=== PATIENT | female | born 1945 | race Caucasian/White ===

== ENCOUNTER 2017-09-10 13:50 | Inpatient (IN) | payer MEDICARE ==
[2017-09-10] MEDS ORDERED: Nitroglycerin 0.4 MG TAB (25 Tab Bottle) ONE (14:17)
[2017-09-10] MEDS ORDERED: Nitroglycerin 2% Ointment 1 INCH/1 GM Packet ONE (14:18)
[2017-09-10 14:41] LABS: #Basophils 0.1 thou/uL (0.0-0.2); #Eosinphils 0.1 thou/uL (0.0-0.7); #Lymphocytes 1.4 thou/uL (1.20-3.40); #Monocytes 0.7 thou/uL (0.11-0.59); #Neutrophils 6.4 thou/uL (1.40-6.50); %Basophils 1.2 % (0.0-1.0); %Eosinophils 0.8 % (0.0-10.0); %Lymphocytes 15.9 % (21.0-51.0); %Monocytes 8.5 % (0.0-10.0); %Neutrophils 73.6 % (42.0-75.0); Anisocytosis SLIGHT = 6-15 cells (100X) (0-5/hpf); Elliptocytes SLIGHT = 2-5 cells (100X) (0-1/hpf); Hemoglobin 9.9 g/dL (12.0-16.0); Hypochromia SLIGHT = 6-15 cells (100X) (0-5/hpf); MDiff Complete? YES; Mean Corpuscular HGB CONC 31.4 g/dL (32.0-36.0); Mean Corpuscular Hemoglobin 24.6 pg (27.0-31.0); Mean Corpuscular Volume 78.6 fl (81.0-99.0); Microcytosis SLIGHT = 6-15 cells (100X) (0-5/hpf); PLT Morphology Comment Appears Adequate; Platelet Count 331 thou/uL (130-400); RBC Distribution Width 16.9 % (11.5-14.5); Red Blood Cell (RBC) Count 4.01 mill/uL (4.20-5.40); Schistocytes SLIGHT = 2-5 cells (100X) (0-1/hpf); Target Cells SLIGHT = 2-5 cells (100X) (0-1/hpf); White Blood Cell (WBC) Count 8.7 thou/uL (4.8-10.8)
[2017-09-10 14:47] LABS: ALT (SGPT) 10 U/L (8-55); AST (SGOT) 20 U/L (5-34); Albumin 3.9 g/dL (3.4-4.8); Alkaline Phosphatase 81 U/L (40-150); Anion Gap 15 mmol/L (10-20); BUN (Urea Nitrogen) 14 mg/dL (9.8-20.1); Bilirubin, Total 0.4 mg/dL (0.2-1.2); CK (CPK) 67 U/L (29-168); Calc. Creatinine Clearance 0 mL/min (70-130); Calcium 9.9 mg/dL (7.8-10.44); Carbon Dioxide 23 mmol/L (23-31); Chloride 106 mmol/L (98-107); Estimated GFR-MDRD 69; Globulin 3.2 g/dL (2.4-3.5); Glucose 110 mg/dL (83-110); Potassium 3.5 mmol/L (3.5-5.1); Protein, Total 7.1 g/dL (6.0-8.3); Sodium 140 mmol/L (136-145)
[2017-09-10 14:49] LABS: CKMB 1.6 ng/mL (0-6.6); Troponin I 0.123 ng/mL (< 0.028)
--- NOTE | 2017-09-10 15:45 | RAD ---
CHEST ONE VIEW: HISTORY: Chest pain. COMPARISON: 12/08/2013 FINDINGS: The cardiac silhouette is magnified and at the upper limits of normal in size. The pulmonary vascula ture is unremarkable. The mediastinum is midline. No lobar consolidation or evidence of pneumothora x. Metallic clips overly each axilla. IMPRESSION: Borderline cardiomegaly. POS: [facility]
[2017-09-10] MEDS ORDERED: Acetaminophen 325 MG TAB PO PRN ×2 (17:27→21:24)
[2017-09-10] MEDS ORDERED: Ondansetron ODT 4 MG TAB SL PRN ×2 (17:27→21:24)
[2017-09-10] MEDS ORDERED: Ondansetron HCl/PF 4 MG/2 ML Vial IVP PRN ×2 (17:27→21:23)
[2017-09-10] MEDS ORDERED: Nitroglycerin 2% Ointment 1 INCH/1 GM Packet TOP SCH (17:30)
[2017-09-10 17:57] VITALS: BMI 27.5
[2017-09-10 18:29] LABS: Troponin I 8.424 ng/mL (< 0.028)
[2017-09-10] MEDS ORDERED: cloNIDine 0.1 MG TAB PO PRN (19:49)
[2017-09-10] MEDS: Carvedilol 3.125 MG TAB PO SCH (20:13)
[2017-09-10] MEDS: Lisinopril 5 MG TAB PO SCH (20:13)
[2017-09-10] MEDS: Pantoprazole 40 MG VIAL IVP SCH (20:14)
[2017-09-10 20:49] LABS: Troponin I 12.911 ng/mL (< 0.028)
--- NOTE | 2017-09-11 00:33 | HP ---
DATE OF ADMISSION: 09/11/2017 HISTORY OF PRESENT ILLNESS: This is a 72-year-old white female with a history of atrial fibrillation in 2015 treated with cardioversion followed by cardiac ablation x2. Patient has done relatively well since then. On 08/14/2017, she had seen Dr. Simon and was found to have a hemoglobin of 8.1. She has also had edema of her lower extremities. At that time her Xarelto, Lasix, and lisinopril were stopped. She was referred to Dr. Grace. She underwent an EGD and colonoscopy, which revealed a negative EGD and colon polyps. A large colon mass was also found and biopsy was obtained, which was benign. She is scheduled to see Dr. Burrows this week for possible excision. This morning, she was in her backyard, shooting her pellet gun, which requires pumping for priming. This is a very strenuous task. She was attempting to shoot squirrels in her backyard at [place]. While doing that she felt bilateral arm pain as well as tightness across her chest. She was quite excited that time and then immediately afterwards she felt a tight band around her chest with pain radiating down her left upper extremity. She states that this lasted approximately 2 hours and resolved while in the emergency room after receiving nitroglycerin and aspirin. At this time, she is chest pain free, conversing with her sister having a good time. She does not complain of any chest pain or shortness of breath at this time. PAST MEDICAL HISTORY: History of headaches, history of breast cancer, history of atrial fibrillation. PAST SURGICAL HISTORY: Include breast lumpectomy age 57 and 58, gastric sleeve at age 63, tubal ligation age 28, cataract surgery in 2016, cardiac ablation x2 , EGD and colonoscopy in early August of this year. FAMILY HISTORY: Father at 89 with lung issues, heart disease. Mother at 89. Maternal grandmother had hypertension and a CVA. She has one healthy sister and two healthy sons. SOCIAL HISTORY: She is a former smoker. She quit in 1983. She has a 1 pack per day history for many years. She drinks one glass of wine daily. She is . She has 2 sons. She is retired. She has been retired. MEDICATIONS: At this time none. She was previously on Xarelto 20 mg daily, lisinopril 5 mg daily, Estrace daily, Lasix 40 mg p.r.n., and Macrobid p.r.n. ALLERGIES: None. REVIEW OF SYSTEMS: As above. PHYSICAL EXAMINATION: VITAL SIGNS: Temperature 98.4, pulse 78, respiration rate 18, blood pressure 161/97. GENERAL: In no acute distress at this time. HEENT: Clear. HEART: Regular rate and rhythm with 3/6 systolic ejection murmur. LUNGS: Clear. ABDOMEN: Soft. EXTREMITIES: With no edema. LABORATORY DATA: White count 8.7, H&H 9.9 and 31.5, platelet of 331. Electrolytes normal. Creatinine 0.81, BUN 14, blood sugar 110. Troponin 0.123 and 8.424. BNP 223. ASSESSMENT: 1. Chest pain, rule out myocardial infarction. 2. Chest wall pain secondary to strenuous activity this afternoon. 3. History of atrial fibrillation, status post cardiac ablation. 4. Hypertension. 5. History of breast cancer. 6. History of tobacco use. PLAN: 1. Patient does have an elevated troponin level unsure if this is cardiac or not. A repeat is scheduled at 8:00 p.m. isauro. 2. Continue nitroglycerin. 3. Start Coreg 3.125 b.i.d. 4. Hold Lovenox for now. 5. Consult Dr. Eric who plans to see her in the a.m. MTDD
[2017-09-11] MEDS: Nitroglycerin 2% Ointment 1 INCH/1 GM Packet TOP SCH ×3 (03:58→20:10)
[2017-09-11 04:18] LABS: #Eosinphils 0.1 thou/uL (0.0-0.7); #Lymphocytes 1.3 thou/uL (1.20-3.40); #Monocytes 0.7 thou/uL (0.11-0.59); #Neutrophils 4.1 thou/uL (1.40-6.50); %Basophils 0.2 % (0.0-1.0); %Eosinophils 1.6 % (0.0-10.0); %Lymphocytes 21.5 % (21.0-51.0); %Monocytes 10.6 % (0.0-10.0); %Neutrophils 66.1 % (42.0-75.0); Hemoglobin 8.3 g/dL (12.0-16.0); Mean Corpuscular HGB CONC 31.5 g/dL (32.0-36.0); Mean Corpuscular Hemoglobin 25.5 pg (27.0-31.0); Mean Corpuscular Volume 80.9 fl (81.0-99.0); Mean Platelet Volume 6.6 fL (7.4-10.4); Platelet Count 283 thou/uL (130-400); RBC Distribution Width 16.9 % (11.5-14.5); Red Blood Cell (RBC) Count 3.27 mill/uL (4.20-5.40); White Blood Cell (WBC) Count 6.3 thou/uL (4.8-10.8)
[2017-09-11 04:43] LABS: Anion Gap 7 mmol/L (10-20); BUN (Urea Nitrogen) 12 mg/dL (9.8-20.1); Calc. Creatinine Clearance 94 mL/min (70-130); Calcium 9.2 mg/dL (7.8-10.44); Carbon Dioxide 29 mmol/L (23-31); Chloride 108 mmol/L (98-107); Estimated GFR-MDRD 82; Glucose 101 mg/dL (83-110); Potassium 3.6 mmol/L (3.5-5.1); Sodium 140 mmol/L (136-145)
[2017-09-11 05:59] LABS: Critical Call Chem Troponin I RESULT DECREASING; Troponin I 8.687 ng/mL (< 0.028)
[2017-09-11] MEDS ORDERED: Lisinopril 5 MG TAB PO SCH (09:00)
[2017-09-11] MEDS ORDERED: Aspirin 81 mg Enteric Coated Tablet PO SCH (09:30)
[2017-09-11] MEDS ORDERED: Aspirin 325 mg Enteric Coated Tablet PO SCH (09:30)
[2017-09-11] MEDS: Ferrous Sulfate 325 MG TAB PO SCH (10:12)
[2017-09-11] MEDS: Pantoprazole 40 MG VIAL IVP SCH ×2 (10:13→20:10)
[2017-09-11] MEDS: Carvedilol 3.125 MG TAB PO SCH ×2 (10:13→20:10)
--- NOTE | 2017-09-11 12:03 | CON ---
DATE OF CONSULTATION: 09/11/2017 HISTORY OF PRESENT ILLNESS: Mojgan Barger is a 72-year-old white female who has been followed by Dr. Simon for atrial arrhythmias in the past. She was initially seen in 08/2011 for palpitations, but no specific etiology was found. In 07/2014, she was found to be in atrial fibrillation and was started on Xarelto and rate controlled. She underwent Lexiscan Cardiolite testing, which revealed anterior ischemia. This was then followed by cardiac catheterization at [facility] in 08/2014 which revealed normal coronary arteries. The decision was made to place her on flecainide and then she underwent electrical cardioversion on 09/2014, but recurred after that. She underwent atrial fibrillation ablation in 10/2014 in [place]. She had recurrence of her atrial arrhythmias with atrial flutter in 12/2014. She was placed on Multaq and cardioverted. Again in 01/2015, she was in atrial fibrillation and underwent electrical cardioversion. Ultimately, she had repeat radiofrequency ablation in 06/2015, and returned to sinus rhythm. She has essentially been in sinus rhythm since that time, although she still has brief paroxysms of atrial fibrillation, sometimes with aberrancy. She has continued to be maintained on Xarelto for stroke prophylaxis. She denies any significant previous chest pain. Yesterday, she was shooting her pellet guns at some squirrels and after that developed central chest pressure which then seemed to radiate down both arms and created band-like effect around her chest. She went to [facility] Emergency Room and was given 4 chewable aspirins and nitroglycerin 0.4 mg sublingually. Her pain completely resolved. Total duration of her pain was 3 hours. She has had elevated troponin I and Cardiology consultation was requested. She did have one 10-minute episode of chest pressure last night, but none since. She was seen in the office on 08/11/2017 and was found to have recent hemoglobin of 8.8. She was also hypotensive at home. Xarelto was stopped. She was placed on iron and referred to GI. Apparently, her hemoglobin fell to 8.1. Lisinopril and Lasix also were stopped. EGD was unremarkable and colonoscopy revealed polyps and large colonic mass which was found to be benign ; however, it was felt that it should be removed with its large size and potential for obstruction in the future. PAST MEDICAL HISTORY: Atrial fibrillation, status post 2 ablations and 3 cardioversions, history of breast cancer, history of headaches. OPERATIONS: Breast lumpectomy x2, gastric sleeve at age 63, tubal ligation, cataract surgery, radiofrequency ablation of atrial fibrillation x2. MEDICATIONS: Ferrous sulfate 325 mg daily. In the recent past she was on Xarelto, furosemide and lisinopril. ALLERGIES: None. SOCIAL HISTORY: She stopped smoking in 1983, smoking 1 pack per day prior to that. She has a glass of wine daily. FAMILY HISTORY: Father had some type of heart disease. REVIEW OF SYSTEMS: Twelve-point review of systems unremarkable except as noted above. PHYSICAL EXAMINATION: VITAL SIGNS: Blood pressure 126/75, pulse is 76, sinus rhythm. She does have intermittent episodes of supraventricular tachycardia as well as idioventricular rhythm on EKG and SVT with aberrancy probably at other times. HEENT: PERRL. NECK: Supple. CHEST: Clear. CARDIAC: S1 and S2 normal without any S3, S4 or murmurs. Carotid upstrokes normal, without bruits. ABDOMEN: Normal bowel sounds, without tenderness, organomegaly or masses. EXTREMITIES: Reveal no clubbing, cyanosis or edema. NEUROLOGIC: Grossly intact. SKIN: Warm and dry. IMAGING DATA AND LABORATORY DATA: EKG is normal except for a short run of probable idioventricular rhythm. Hemoglobin 8.3, hematocrit 26.5, white count 6 ,300, platelets 283,000. Sodium 140, potassium 3.6, chloride 108, carbon dioxide 29, BUN 12, creatinine 0.70. BNP 223.8, troponin I peaked at 12.911. IMPRESSION: 1. [id number] elevation myocardial infarction. She did have normal coronary arteries on catheterization in 08/2014. 2. Anemia, presumably from large colonic polyp. Xarelto has been discontinued. 3. Atrial fibrillation, status post radiofrequency ablation x2 and electrical cardioversion x3, continues to maintain sinus rhythm. 4. Hypertension. 5. Former smoker. 6. Positive family history. 7. History of breast cancer and lumpectomy x2. 8. Colonic mass. 9. Anemia. PLAN: Patient will be maintained on aspirin daily as well as topical nitrates. Echocardiogram will be performed to reassess left ventricular function. The patient will be typed and cross matched since she certainly may require transfusion during this admission and with the need for catheterization may require transfusion after that. It was recommended that she undergo cardiac catheterization after the holiday weekend. Risks of this were discussed including , myocardial infarction, dye reaction, vascular injury, CVA, transfusion, limb loss, renal loss, etc. Risk of intervention with stent placement were discussed including , myocardial infarction, emergent CABG, restenosis, stent thrombosis, vessel perforation, etc. With her need for long- term anticoagulation and need for partial colectomy for removal of the colonic mass in the near future, I would only recommend placing a bare metal stent. Fasting lipids will be obtained. JOVNAID
[2017-09-11] MEDS: Lisinopril 5 MG TAB PO SCH (20:10)
[2017-09-12] MEDS: Nitroglycerin 2% Ointment 1 INCH/1 GM Packet TOP SCH (04:06)
[2017-09-12 05:33] LABS: #Eosinphils 0.1 thou/uL (0.0-0.7); #Lymphocytes 1.3 thou/uL (1.20-3.40); #Monocytes 0.7 thou/uL (0.11-0.59); #Neutrophils 3.6 thou/uL (1.40-6.50); %Basophils 0.4 % (0.0-1.0); %Lymphocytes 22.6 % (21.0-51.0); %Monocytes 12.7 % (0.0-10.0); %Neutrophils 62.2 % (42.0-75.0); Hemoglobin 8.4 g/dL (12.0-16.0); Mean Corpuscular HGB CONC 31.3 g/dL (32.0-36.0); Mean Corpuscular Hemoglobin 25.7 pg (27.0-31.0); Mean Corpuscular Volume 82.3 fl (81.0-99.0); Platelet Count 304 thou/uL (130-400); RBC Distribution Width 17.5 % (11.5-14.5); Red Blood Cell (RBC) Count 3.25 mill/uL (4.20-5.40); White Blood Cell (WBC) Count 5.8 thou/uL (4.8-10.8)
[2017-09-12 06:11] LABS: Cardiac Risk 2.4 (Less than 4.5)
[2017-09-12] MEDS: Carvedilol 3.125 MG TAB PO SCH ×2 (09:08→19:45)
[2017-09-12] MEDS: Ferrous Sulfate 325 MG TAB PO SCH (09:08)
[2017-09-12] MEDS: Aspirin 325 mg Enteric Coated Tablet PO SCH (09:08)
[2017-09-12] MEDS: Pantoprazole 40 MG VIAL IVP SCH ×2 (09:08→19:45)
--- NOTE | 2017-09-12 11:13 | PRG ---
DATE OF SERVICE: 09/11/2017 TIME: 10 a.m. SUBJECTIVE: The patient is doing well. She is chest pain free. She remains in a cheerful state wit h her sister present. Eating breakfast this morning without difficulty. She saw Dr. Hernesto hess. Plans to possibly do a cardiac catheterization on Wednesday. OBJECTIVE: VITAL SIGNS: Temperature 98.6, pulse 76, respirations 16, pulse ox 93%, blood pressure 126/75. HEART: Regular rate and rhythm with 3/6 systolic ejection murmur. LUNGS: Clear. ABDOMEN: Soft. EXTREMITIES: No edema. LABORATORY DATA: Hemoglobin and hematocrit 8.3 and 26.5, platelet 283. Electrolytes normal. Creati nine 0.7 and BUN 12. Troponin I 8.4, 12.9 and 8.6 this a.m. ASSESSMENT: 1. Chest pain, rule out myocardial infarction, rule out coronary artery disease, rule out non-ST orlin vated myocardial infarction. 2. Chest wall pain secondary to strenuous activity. 3. History of atrial fibrillation, status post cardiac ablation. 4. Hypertension. 5. History of breast cancer. 6. History of tobacco use. PLAN: 1. Discussed with Dr. Eric. Plan to possibly proceed with cardiac catheterization on Wednesday. 2. Continue iron therapy. 3. Recheck CBC and BMP in the a.m. Maintain present blood pressure regimen.
[2017-09-12] MEDS ORDERED: Communication Order-Pharmacy FS SCH (16:15)
[2017-09-12] MEDS: Atorvastatin Calcium 10 MG TAB PO SCH (19:45)
[2017-09-12] MEDS: Lisinopril 5 MG TAB PO SCH (19:45)
[2017-09-13] MEDS: Nitroglycerin 0.4 MG TAB (25 Tab Bottle) SL PRN ×2 (01:17→01:25)
[2017-09-13 05:25] LABS: #Eosinphils 0.1 thou/uL (0.0-0.7); #Lymphocytes 1.3 thou/uL (1.20-3.40); #Monocytes 0.7 thou/uL (0.11-0.59); #Neutrophils 3.2 thou/uL (1.40-6.50); %Basophils 0.6 % (0.0-1.0); %Eosinophils 2.1 % (0.0-10.0); %Lymphocytes 24.3 % (21.0-51.0); %Monocytes 13.3 % (0.0-10.0); %Neutrophils 59.6 % (42.0-75.0); Hemoglobin 8.4 g/dL (12.0-16.0); Mean Corpuscular Hemoglobin 25.6 pg (27.0-31.0); Mean Corpuscular Volume 82.5 fl (81.0-99.0); Mean Platelet Volume 7.3 fL (7.4-10.4); Platelet Count 303 thou/uL (130-400); RBC Distribution Width 17.4 % (11.5-14.5); Red Blood Cell (RBC) Count 3.27 mill/uL (4.20-5.40); White Blood Cell (WBC) Count 5.4 thou/uL (4.8-10.8)
[2017-09-13] MEDS: Pantoprazole 40 MG VIAL IVP SCH ×2 (09:39→20:03)
[2017-09-13] MEDS: Aspirin 325 mg Enteric Coated Tablet PO SCH (09:39)
[2017-09-13] MEDS: Ferrous Sulfate 325 MG TAB PO SCH (09:39)
[2017-09-13] MEDS: Carvedilol 3.125 MG TAB PO SCH ×2 (09:39→20:02)
--- NOTE | 2017-09-13 13:48 | PRG ---
DATE OF SERVICE: 09/13/2017 SUBJECTIVE: The patient is doing well this morning. Last night she did have a brief episode of ches t pain and was relieved with nitroglycerin. PHYSICAL EXAMINATION: VITAL SIGNS: Temperature 98.2, pulse 69, respiration rate 18, pulse ox 95%, and blood pressure 134/7 8. HEART: Regular rate and rhythm with a 3/6 systolic ejection murmur. LUNGS: Clear. ABDOMEN: Soft. EXTREMITIES: With no edema. LABORATORY DATA: White count 5.4, H&H 8.4 and 26.9. ASSESSMENT: 1. Rmp-RH-ejjaxvz elevation myocardial infarction. 2. Chest wall pain secondary to a strenuous activity. 3. Anemia secondary to a large colonic polyp, Xarelto was stopped. 4. Large colonic polyps, awaiting colectomy in the future. 5. Atrial fibrillation, status post ablation x2 and cardioversion x3. 6. Hypertension. 7. Former smoker. 8. History of breast cancer. 9. History of gastric bypass. PLAN: 1. Cardiac catheterization possibly in the a.m. 2. Continue iron therapy. 3. Maintain present hypertensive regimen.
--- NOTE | 2017-09-13 17:17 | PRG ---
DATE OF SERVICE: 09/13/2017 SUBJECTIVE: Ms. Barger is doing well. No chest pain or pressure. OBJECTIVE: VITAL SIGNS: Blood pressure 118/70, pulse 80. LUNGS: Clear. CARDIAC: Normal S1 and S2. ASSESSMENT: 1. History of paroxysmal atrial fibrillation, status post ablation. 2. Intermittent supraventricular tachycardia with minimal symptoms. 3. Iron deficiency anemia. 4. Non-ST elevation myocardial infarction. PLAN: The patient is scheduled for cardiac catheterization tomorrow. Dr. Simon to proceed with that.
[2017-09-13] MEDS: Lisinopril 5 MG TAB PO SCH (20:02)
[2017-09-13] MEDS: Atorvastatin Calcium 10 MG TAB PO SCH (20:02)
--- NOTE | 2017-09-13 22:25 | EKG ---
Test Reason : STAT Blood Pressure : / mmHG Vent. Rate : 100 BPM Atrial Rate : 080 BPM P-R Int : 176 ms QRS Dur : 092 ms QT Int : 374 ms P-R-T Axes : 052 047 033 degrees QTc Int : 482 ms Sinus rhythm with Premature supraventricular complexes Supraventricular tachycardia Nonspecific T wave abnormality Prolonged QT Abnormal ECG When compared with ECG of 05-FEB-2015 11:28, Sinus rhythm has replaced Atrial fibrillation Nonspecific T wave abnormality now evident in Anterior leads Confirmed by Coty LEYVA ([id number]) on 09/13/2017 10:24:48 PM Referred By: JULIÁN Confirmed By:Coty LEYVA
[2017-09-14] MEDS: Carvedilol 3.125 MG TAB PO SCH (05:16)
[2017-09-14] MEDS: Aspirin 325 mg Enteric Coated Tablet PO SCH (05:16)
[2017-09-14 05:42] LABS: #Eosinphils 0.1 thou/uL (0.0-0.7); #Lymphocytes 1.5 thou/uL (1.20-3.40); #Monocytes 0.7 thou/uL (0.11-0.59); #Neutrophils 2.9 thou/uL (1.40-6.50); %Basophils 0.7 % (0.0-1.0); %Eosinophils 2.5 % (0.0-10.0); %Lymphocytes 28.3 % (21.0-51.0); %Monocytes 13.7 % (0.0-10.0); %Neutrophils 54.8 % (42.0-75.0); Hemoglobin 8.5 g/dL (12.0-16.0); Mean Corpuscular HGB CONC 29.9 g/dL (32.0-36.0); Mean Corpuscular Hemoglobin 24.7 pg (27.0-31.0); Mean Corpuscular Volume 82.4 fl (81.0-99.0); Mean Platelet Volume 7.3 fL (7.4-10.4); Platelet Count 291 thou/uL (130-400); RBC Distribution Width 17.7 % (11.5-14.5); Red Blood Cell (RBC) Count 3.45 mill/uL (4.20-5.40); White Blood Cell (WBC) Count 5.3 thou/uL (4.8-10.8)
[2017-09-14] MEDS ORDERED: Sodium Chloride 0.9% 1,000 ML IV SCH (06:00)
[2017-09-14] MEDS: Ferrous Sulfate 325 MG TAB PO SCH (07:37)
[2017-09-14 08:01] VITALS: BP 128/72; TEMP 97.7
--- NOTE | 2017-09-14 08:43 | PRG ---
DATE OF SERVICE: 09/14/2017 Ms. Barger is doing well. No recurrence of chest pain. She recently presented with a troponin of 12. She does have a benign colonic mass that needs to be r emoved. RECOMMENDATIONS: At this point, I would recommend coronary angiography plus PCI. I discussed the pr ocedure in full detail with Ms. Barger. The risks included, but are not limited to the following: , stroke, UT, need for emergency surgery, loss of limb, bleeding, and infection, as well as a re action to the dye causing kidney failure and needing long-term dialysis. I also discussed the risks of PCI to include all of the above including coronary dissection and perforation in addition to acute stent thrombosis and restenosis. All questions about the procedure were answered. Given the above, the patient agreed to proceed with coronary angiography and possible PCI. All questions were answered. Her hemoglobin is 8.5, so we will approach or via a radial approach. W e will try and minimize exchanges. I would proceed with a bare metal stent given the above. She rhodes s have anemia likely from the colonic mass in addition to atrial fibrillation on anticoagulation ther apy and aspirin. Further recommendation pending above.
[2017-09-14] MEDS: Pantoprazole 40 MG VIAL IVP SCH (10:05)
[2017-09-14] MEDS ORDERED: Iopamidol 370 76% 100 ML VIAL ONE ×2 (10:50→11:03)
[2017-09-14] MEDS ORDERED: Lidocaine 1% (PF) 30 ML VIAL ONE (11:36)
[2017-09-14] MEDS ORDERED: Heparin 10,000 UNITS/1 ML VIAL ONE (12:05)
[2017-09-14] MEDS ORDERED: Nitroglycerin 100MG/250ML BOT 250 ML ONE (12:05)
[2017-09-14] MEDS ORDERED: Verapamil 5 MG/2 ML VIAL ONE (12:13)
[2017-09-14] MEDS ORDERED: Fentanyl 100 MCG/2 ML VIAL ONE (12:13)
[2017-09-14] MEDS ORDERED: Midazolam HCl 2 mg/2 ml Vial ONE (12:13)
[2017-09-14] MEDS ORDERED: traMADol HCl 50 MG TAB PO PRN (12:33)
[2017-09-14] MEDS ORDERED: Acetaminophen/Codeine 30-300mg Tablet PO PRN ×2 (12:33)
[2017-09-14] MEDS ORDERED: Nitroglycerin 0.4 MG TAB (25 Tab Bottle) SL PRN (12:33)
[2017-09-14] MEDS ORDERED: Sodium Chloride 0.9% 200 ML IV SCH (12:45)
--- NOTE | 2017-09-14 15:04 | PRG ---
DATE OF SERVICE: 09/14/2017 SUBJECTIVE: Ms. Barger recently underwent coronary angiography and has had mild coronary disease. This is similar to her previous finding in 2015. Working diagnosis includes embolization from the left atrial appendage given troponin of 12. It is l ess likely that she had demand ischemia from intermittent SVT. Other working diagnosis also includes PE. She has been off anticoagulation therapy over the last month due to anemia. She also was recen tly worked up and was found to have a benign colon mass in his needing removal. From a cardiac standpoint, I recommend a CT angio to assess for PE. We would also recommend restarti ng anticoagulation therapy with CBC every 2 weeks. This is prior to surgery that has not been schedu led. I discussed the case with Dr. Jose Souza and the family. They are agreeable.
--- NOTE | 2017-09-14 15:39 | CT ---
CT PULMONARY ANGIOGRAM WITH IV CONTRAST AND 3D POSTPROCESSING: Date: 09/14/17 HISTORY: 72-year-old female with chest pain. Patient had heart cath today. FINDINGS: There is good contrast opacification of the pulmonary arterial vasculature without filling defects to suggest pulmonary embolism. There are vascular calcifications without aneurysmal dilatation of the t horacic aorta. No pericardial or right pleural effusion is seen. There are tiny left pleural effusion s noted with left basilar patchy consolidation/atelectatic change. Mild atelectatic changes are seen in the right lung base. No pneumothoraces are identified. There are degenerative changes in the spine . Upper abdominal tomograms demonstrate a stable bilobed left adrenal mass since CT of 03/01/13, cons istent with adrenal adenoma. IMPRESSION: No CT evidence of pulmonary embolism. POS: [facility]
--- NOTE | 2017-09-14 18:44 | PRG ---
DATE OF SERVICE: 09/14/2017 SUBJECTIVE: Ms. Barger is doing well. She has had her cardiac cath today. Fortunately, her jimenez ry arteries are clear, is now recently thought that she may have had an embolic phenomenon causing a heart attack after stopping her Xarelto. Nonetheless, she is feeling well. After discussion with Dr Gurjit Simon, I felt it might be more tolerable to go ahead and proceed with a CT angio of the chest t o rule out other embolic phenomena such as pulmonary embolus. Otherwise, she is doing well. OBJECTIVE: LUNGS: Clear. HEART: Reveals no murmur. IMPRESSION: Myocardial infarction, probably embolic source. PLAN: 1. Proceed with CT scan of the chest. 2. Once this is complete, she possibly could go home. We will discuss starting Xarelto at a later d ate.
== END 2017-09-14 18:05 | disposition home or self-care (01) | DRG 281 ==
LOC: SCSER 13:50 → 2SW 16:06 → OBSVTOIN 09-11 15:57 → 2NO 09-11 18:37
PROVIDERS: ADMIT Family Medicine; ATTEND Family Medicine
PROC: 4A023N7 Measurement of Cardiac Sampling and Pressure, Left Heart, Percutaneous Approach (ICD-10-PCS; principal; 2017-09-14)
DX: I21.4 Non-ST elevation (NSTEMI) myocardial infarction (principal); I47.1 Supraventricular tachycardia; D50.9 Iron deficiency anemia, unspecified; I48.0 Paroxysmal atrial fibrillation; K63.5 Polyp of colon; I10 Essential (primary) hypertension; Z87.891 Personal history of nicotine dependence; Z98.84 Bariatric surgery status; Z85.3 Personal history of malignant neoplasm of breast; Z79.01 Long term (current) use of anticoagulants
CPT/HCPCS: 36415; 71045; 71275; 80048; 80053; 80061; 82550; 82553; 83880; 84484; 85025; 86850; 86900; 86901; 93005; 93010; 93306; 93458; 94760; 99152; 99153; A4216; C1769; C9113; J1644; J2001; J2250; J3010

== ENCOUNTER 2017-11-22 09:00 | Inpatient (IN) | payer MEDICARE ==
[2017-11-22 09:47] VITALS: BMI 27.2
[2017-11-23] MEDS ORDERED: Bupivacaine HCl 0.5%/Epinephrine 1:200,000/PF 30 ml Vial ONE (09:52)
[2017-11-23] MEDS ORDERED: Ondansetron HCl/PF 4 MG/2 ML Vial ONE (09:56)
[2017-11-23] MEDS ORDERED: PHENYLEPHRINE-NS 100 MCG/ML 10 ML SYRINGE ONE (09:56)
[2017-11-23] MEDS ORDERED: Dexamethasone 20 MG/5 ML VIAL ONE (09:56)
[2017-11-23] MEDS ORDERED: Ketorolac Tromethamine 30 MG/ML VIAL ONE (09:56)
[2017-11-23] MEDS ORDERED: Lidocaine 1% PF 5 ML VIAL ONE (09:56)
[2017-11-23] MEDS ORDERED: PROPOFOL 200 MG/20 ML VIAL ONE (09:56)
[2017-11-23] MEDS ORDERED: Ondansetron HCl/PF 4 MG/2 ML Vial IVP PRN ×2 (10:50→12:35)
[2017-11-23] MEDS ORDERED: Promethazine HCl 25 MG/ML VIAL IM PRN ×2 (10:50→12:35)
[2017-11-23] MEDS ORDERED: Promethazine HCl 25 MG/ML VIAL SLOW IVP PRN (10:50)
[2017-11-23] MEDS ORDERED: hydrALAZINE 20 MG/ML VIAL SLOW IVP PRN (12:35)
[2017-11-23] MEDS ORDERED: Acetaminophen 1,000 MG in Premix Bag 1 BAG IVPB SCH ×2 (12:35→13:15)
[2017-11-23] MEDS ORDERED: Fentanyl 100 MCG/2 ML VIAL SLOW IVP PRN ×2 (12:35)
[2017-11-23] MEDS: Ketorolac Tromethamine 30 MG/ML VIAL IVP PRN (13:15)
[2017-11-23] MEDS: cefOXitin 2 GM in Sodium Chloride 0.9% 100 ML IVPB SCH ×2 (15:47→21:48)
[2017-11-23] MEDS: Acetaminophen 1,000 MG in Premix Bag 1 BAG IVPB SCH (18:53)
[2017-11-23] MEDS: D5 1/2 NS w/20 mEq KCL 1,000 ML IV SCH (19:17)
[2017-11-23] MEDS: Carvedilol 3.125 MG TAB PO SCH (20:47)
[2017-11-23] MEDS: Enoxaparin Sodium 40 MG/0.4 ML SYRINGE SC SCH (20:47)
[2017-11-24] MEDS: Acetaminophen 1,000 MG in Premix Bag 1 BAG IVPB SCH ×2 (00:28→06:14)
[2017-11-24] MEDS: D5 1/2 NS w/20 mEq KCL 1,000 ML IV SCH (01:45)
[2017-11-24 05:41] LABS: #Lymphocytes 0.7 thou/uL (1.20-3.40); #Monocytes 0.8 thou/uL (0.11-0.59); #Neutrophils 5.8 thou/uL (1.40-6.50); %Basophils 0.1 % (0.0-1.0); %Eosinophils 0.2 % (0.0-10.0); %Lymphocytes 9.6 % (21.0-51.0); %Monocytes 10.4 % (0.0-10.0); %Neutrophils 79.7 % (42.0-75.0); Mean Corpuscular HGB CONC 34.4 g/dL (32.0-36.0); Mean Corpuscular Volume 90.2 fL (78.0-98.0); Mean Platelet Volume 7.4 fL (7.4-10.4); Platelet Count 198 thou/uL (130-400); RBC Distribution Width 16.4 % (11.5-14.5); Red Blood Cell (RBC) Count 3.24 mill/uL (4.20-5.40); White Blood Cell (WBC) Count 7.3 thou/uL (4.8-10.8)
[2017-11-24 05:48] LABS: Anion Gap 13 mmol/L (10-20); BUN (Urea Nitrogen) 19 mg/dL (9.8-20.1); Calc. Creatinine Clearance 84 mL/min (70-130); Calcium 8.9 mg/dL (7.8-10.44); Carbon Dioxide 26 mmol/L (23-31); Chloride 94 mmol/L (98-107); Estimated GFR-MDRD 70; Glucose 98 mg/dL (83-110); Potassium 3.3 mmol/L (3.5-5.1); Sodium 130 mmol/L (136-145)
[2017-11-24] MEDS: Carvedilol 3.125 MG TAB PO SCH ×2 (08:54→20:29)
[2017-11-24] MEDS: Ketorolac Tromethamine 30 MG/ML VIAL IVP PRN ×2 (11:32→21:56)
[2017-11-24] MEDS ORDERED: traMADol HCl 50 MG TAB PO PRN ×2 (11:34)
[2017-11-24] MEDS ORDERED: Potassium Chloride 20 MEQ in Premix Bag 1 BAG IVPB SCH (11:45)
[2017-11-24] MEDS: Enoxaparin Sodium 40 MG/0.4 ML SYRINGE SC SCH (20:29)
--- NOTE | 2017-11-25 00:28 | OP ---
DATE OF PROCEDURE: 11/23/2017 PREOPERATIVE DIAGNOSES: 1. Villous adenoma unresectable by colonoscopy at the hepatic flexure of colon. 2. Nonhealing skin lesion in right lower extremity. POSTOPERATIVE DIAGNOSES: 1. Villous adenoma unresectable by colonoscopy at the hepatic flexure of colon. 2. Nonhealing skin lesion in right lower extremity. PROCEDURES PERFORMED: Da Shonda laparoscopic right colectomy with isoperistaltic ileocolonic anastomo sis, wide local excision of 1 cm skin lesion in right lower extremity. SURGEON: Tian Burrows MD ANESTHESIA: General. ESTIMATED BLOOD LOSS: Minimal. COMPLICATIONS: None. SPECIMEN: Right colon sent to Pathology for final diagnosis. TECHNIQUE: The patient was taken to the operating room and placed supine on the table. After genera l anesthetic was obtained, her abdomen as well as her right lower extremity were prepped and draped i n a sterile fashion. A longitudinal elliptical incision was used to ellipse out the nonhealing area of previous shaved biopsy to the right lower extremity. The specimen was marked with 2 short superio r, 1 long lateral and sent to Pathology for final diagnosis. The wound is irrigated and closed using 3-0 nylon interrupted sutures. Sterile dressings were placed. Next, left subcostal 5-mm Optiview trocar was placed and high-flow pneumoperitoneum was obtained. Ca kristian robot port was placed in left umbilicus, assist 11-mm port was placed in left upper quadrant, 8- mm assist port was placed in the left lower quadrant. The robot was brought in on the patient's righ t. All ports were docked to the robot. The 5-mm subcostal incision was switched out to the 15-mm ro bot stapler port. Surgeon goes to the console. The patient had been placed in Trendelenburg positio n. The medial to lateral dissection of the right colon was performed. The right ureter was found an d excluded from the dissection. Hepatic flexure was mobilized in usual fashion. The duodenum was le ft down and away from the dissection and was not injured. Circumferential dissection of the proximal transverse colon was performed. This was passed the blue dyed area. Robot stapler was fired across the terminal ileum. A re-load was fired across the proximal transverse colon. The ileocolic vessel was taken low using the robot vessel sealer. The specimen was placed down in the pelvis. The small bowel was able to be brought up against the colon in an isoperistaltic fashion without twist under n o tension. A 2-0 Vicryl was used to sew the end of the transverse colon staple line to the more prox imal small intestine on the antimesenteric surface. An additional suture was placed more distally on the colon and on the end of the small bowel, holding them together. Enterotomy was made on each and a robot stapler was used to form the anastomosis. The common enterotomy was closed in two layers us ing 2-0 Vicryl running full thickness, followed by 2-0 Vicryl serosal. There was no evidence of isch emia to the staple line. Of note, 3 to 6 mL of ICG green dye was given before and after stapling and anastomosis, and under immunofluorescence, there was no evidence of ischemia to the colon segment, s mall bowel segment, or to the anastomosis. All ports were undocked from the robot. The 15-mm trocar was closed using GraNee needle 0 Vicryl tie. Right lower quadrant muscle splitting incision was mad e and the Jhonny wound retractor was placed to facilitate the colon extraction. The posterior fascia was closed using PDS. The anterior fascia was closed using PDS. All wounds were irrigated copiousl y and closed using 3-0 Vicryl, 4-0 Monocryl, and Dermabond. The patient was taken to recovery in sta ble condition. All instrument counts, needle counts, lap counts were correct.
[2017-11-25 04:59] LABS: Anion Gap 9 mmol/L (10-20); BUN (Urea Nitrogen) 13 mg/dL (9.8-20.1); Calc. Creatinine Clearance 86 mL/min (70-130); Calcium 8.7 mg/dL (7.8-10.44); Carbon Dioxide 31 mmol/L (23-31); Chloride 96 mmol/L (98-107); Estimated GFR-MDRD 72; Glucose 93 mg/dL (83-110); Potassium 3.3 mmol/L (3.5-5.1); Sodium 133 mmol/L (136-145)
[2017-11-25 08:00] VITALS: BP 160/95; TEMP 97.8
[2017-11-25] MEDS: Carvedilol 3.125 MG TAB PO SCH (08:57)
--- NOTE | 2017-11-25 12:21 | DIS ---
DATE OF ADMISSION: 11/23/2017 DATE OF DISCHARGE: 11/25/2017 ADMISSION DIAGNOSIS: Hepatic flexure of colon mass. DISCHARGE DIAGNOSIS: Hepatic flexure of colon mass. PROCEDURIS: Da Shonda laparoscopic right colectomy by Dr. Burrows without complication. CONDITION AT DISCHARGE: Improved. HOSPITAL COURSE: The patient admitted on a clear liquid diet. On postop day #1, she was advanced to full. On postop day #2, she is tolerating the full liquid. She is doing well. She is discharged h ome. She will resume her Xarelto tomorrow. Other meds as before. Prescriptions for tramadol and Zo sue .
== END 2017-11-25 11:28 | disposition home or self-care (01) | DRG 983 ==
LOC: SURG A 11-23 06:03 → EDSTATUS 11-23 09:00 → SURG A 11-23 11:41
PROVIDERS: ADMIT Surgery; ATTEND Surgery
PROC: 0DTF4ZZ Resection of Right Large Intestine, Percutaneous Endoscopic Approach (ICD-10-PCS; principal; 2017-11-23)
PROC: 8E0W4CZ Robotic Assisted Procedure of Trunk Region, Percutaneous Endoscopic Approach (ICD-10-PCS; 2017-11-23)
PROC: 0HBKXZZ Excision of Right Lower Leg Skin, External Approach (ICD-10-PCS; 2017-11-23)
DX: D13.4 Benign neoplasm of liver (principal); L98.9 Disorder of the skin and subcutaneous tissue, unspecified; Z79.01 Long term (current) use of anticoagulants
CPT/HCPCS: 36415; 80048; 83036; 85025; 88305; 88307; 93005; 93010; J0131; J0670; J0694; J1100; J1650; J1885; J2001; J2405; J2704; J3480; J7050

== ENCOUNTER 2017-11-22 09:02 | Outpatient (CLI) | payer MEDICARE ==
[2017-11-22 11:09] LABS: #Basophils 0.1 thou/uL (0.0-0.2); #Eosinphils 0.1 thou/uL (0.0-0.7); #Lymphocytes 1.2 thou/uL (1.20-3.40); #Monocytes 0.7 thou/uL (0.11-0.59); #Neutrophils 3.3 thou/uL (1.40-6.50); %Eosinophils 2.4 % (0.0-10.0); %Lymphocytes 22.2 % (21.0-51.0); %Monocytes 13.2 % (0.0-10.0); %Neutrophils 61.2 % (42.0-75.0); Hemoglobin 12.1 g/dL (12.0-16.0); Mean Corpuscular HGB CONC 33.4 g/dL (32.0-36.0); Mean Corpuscular Hemoglobin 30.2 pg (27.0-31.0); Mean Corpuscular Volume 90.4 fL (78.0-98.0); Mean Platelet Volume 7.2 fL (7.4-10.4); Platelet Count 267 thou/uL (130-400); Red Blood Cell (RBC) Count 4.03 mill/uL (4.20-5.40); White Blood Cell (WBC) Count 5.3 thou/uL (4.8-10.8)
[2017-11-22 11:23] LABS: Anion Gap 14 mmol/L (10-20); BUN (Urea Nitrogen) 25 mg/dL (9.8-20.1); Calc. Creatinine Clearance 0 mL/min (70-130); Calcium 9.3 mg/dL (7.8-10.44); Carbon Dioxide 29 mmol/L (23-31); Chloride 93 mmol/L (98-107); Estimated GFR-MDRD 55; Glucose 91 mg/dL (83-110); Sodium 133 mmol/L (136-145)
[2017-11-22 12:15] LABS: Hemoglobin A1c 5.4 % (4.0-6.0)
== END 2017-11-22 09:03 | disposition home or self-care (01) ==
LOC: LABBT 09:02
PROVIDERS: ATTEND Surgery
DX: Z01.812 Encounter for preprocedural laboratory examination (principal); K63.9 Disease of intestine, unspecified
CPT/HCPCS: 80048; 83036; 85025; 93005; 93010

== ENCOUNTER 2019-04-05 09:07 | Outpatient (CLI) | payer MEDICARE ==
--- NOTE | 2019-04-05 11:04 | ULT ---
ABDOMINAL AORTIC ULTRASOUND: HISTORY: Abdominal aortic aneurysm screening. FINDINGS: Real-time imaging of the abdominal aorta shows the proximal aorta to measure 2.5 cm, mid aorta 2.1, a nd distally 1.8 cm. Iliac arteries are in the 7 mm range. IMPRESSION: No evidence of aortic aneurysm. POS: [facility]
== END 2019-04-05 09:08 | disposition home or self-care (01) ==
LOC: SCSULT 09:07
PROVIDERS: ATTEND Family Medicine
DX: Z13.6 Encounter for screening for cardiovascular disorders (principal)
CPT/HCPCS: 76775

== ENCOUNTER 2019-05-18 07:59 | Outpatient (CLI) | payer MEDICARE ==
[2019-05-18 11:10] LABS: INR-International Normal Ratio 1.6; Prothrombin Time 18.8 SEC (12.0-14.7)
[2019-05-18 11:14] LABS: #Eosinphils 0.1 thou/uL (0.0-0.7); #Monocytes 0.5 thou/uL (0.11-0.59); #Neutrophils 3.2 thou/uL (1.40-6.50); %Basophils 0.8 % (0.0-1.0); %Eosinophils 2.1 % (0.0-10.0); %Lymphocytes 19.9 % (21.0-51.0); %Monocytes 10.3 % (0.0-10.0); Hemoglobin 12.3 g/dL (12.0-16.0); Mean Corpuscular HGB CONC 31.8 g/dL (32.0-36.0); Mean Corpuscular Hemoglobin 30.2 pg (27.0-31.0); Mean Platelet Volume 7.4 fL (7.4-10.4); Platelet Count 255 thou/uL (130-400); RBC Distribution Width 12.8 % (11.5-14.5); Red Blood Cell (RBC) Count 4.08 mill/uL (4.20-5.40); White Blood Cell (WBC) Count 4.8 thou/uL (4.8-10.8)
[2019-05-18 11:29] LABS: Anion Gap 10 mmol/L (10-20); BUN (Urea Nitrogen) 23 mg/dL (9.8-20.1); Calc. Creatinine Clearance 0 mL/min (70-130); Calcium 9.6 mg/dL (7.8-10.44); Carbon Dioxide 29 mmol/L (23-31); Chloride 105 mmol/L (98-107); Estimated GFR-MDRD 69; Glucose 83 mg/dL (83-110); Potassium 4.3 mmol/L (3.5-5.1); Sodium 140 mmol/L (136-145)
[2019-05-18 13:49] LABS: Bilirubin Negative (Negative); Blood, Urine Negative (Negative); Clarity Clear (Clear); Glucose, Urine (Dipstick) Normal (Negative); Leukocyte 250 Leu/uL (Negative); Nitrite Negative (Negative); Protein, Urine (Dipstick) Negative (Neg-Trace); RBC/HPF 0-3 HPF (0-3); Squamous Epithelial 0-3 HPF (0-3); Urobilinogen Normal mg/dL (Less than 2)
[2019-05-18 13:56] LABS: Bacteria/HPF 1+ HPF (None Seen)
== END 2019-05-18 08:00 | disposition home or self-care (01) ==
LOC: LABBT 07:59
PROVIDERS: ATTEND Orthopaedic Surgery
DX: Z01.812 Encounter for preprocedural laboratory examination (principal); M17.11 Unilateral primary osteoarthritis, right knee
CPT/HCPCS: 80048; 81001; 85025; 85610; 87081

== ENCOUNTER 2019-05-29 07:08 | Day surgery (SDC) | payer MEDICARE ==
[2019-05-29] MEDS ORDERED: Sodium Chloride 0.9% 100 ML ONE ×2 (07:15→10:39)
[2019-05-29] MEDS ORDERED: Tranexamic Acid 1,000 MG/10 ML VIAL ONE ×2 (07:15→10:32)
[2019-05-29] MEDS ORDERED: Vancomycin 1.5 GRAM/300 ML BAG 1.5 GM/300 ML BAG ONE (07:15)
[2019-05-29] MEDS ORDERED: Bupivacaine PF 0.5% 30 ML VIAL ONE (07:23)
[2019-05-29] MEDS ORDERED: Midazolam HCl 2 mg/2 ml Vial ONE (07:31)
[2019-05-29] MEDS ORDERED: Fentanyl 100 MCG/2 ML VIAL ONE (07:31)
[2019-05-29] MEDS ORDERED: Lidocaine 1% (PF) 30 ML VIAL ONE (07:31)
[2019-05-29] MEDS ORDERED: Zolpidem Tartrate 5 MG TAB PO PRN ×2 (08:18→08:24)
[2019-05-29] MEDS ORDERED: Promethazine HCl 25 MG/ML VIAL IM PRN ×3 (08:18→09:44)
[2019-05-29] MEDS ORDERED: traMADol HCl 50 MG TAB PO PRN ×2 (08:18→08:24)
[2019-05-29] MEDS ORDERED: HYDROcodone/Acetaminophen 10/325 mg Tablet PO PRN ×4 (08:18→08:24)
[2019-05-29] MEDS ORDERED: Ondansetron PF 4 MG/2 ML Vial IVP PRN ×2 (08:18→08:24)
[2019-05-29] MEDS ORDERED: diphenhydrAMINE 25 MG CAP PO PRN (08:18)
[2019-05-29] MEDS ORDERED: Acetaminophen 325 MG TAB PO PRN ×2 (08:18→08:24)
[2019-05-29] MEDS ORDERED: Fentanyl 100 MCG/2 ML VIAL SLOW IVP PRN (08:18)
[2019-05-29] MEDS ORDERED: Fentanyl 100 MCG/2 ML VIAL IV PRN (08:24)
[2019-05-29] MEDS ORDERED: Ropivacaine HCl/PF 250 ML in Premix Bag 1 BAG NERVE BLCK SCH (08:24)
[2019-05-29] MEDS ORDERED: Vancomycin HCl 1.5 GM in Sodium Chloride 0.9% 250 ML 300 ML IVPB SCH (08:30)
[2019-05-29] MEDS ORDERED: Tranexamic Acid 1,000 MG in Sodium Chloride 0.9% 100 ML IVPB SCH (08:30)
[2019-05-29] MEDS ORDERED: Multivitamin W/ Minerals 1 TAB PO SCH (09:00)
[2019-05-29] MEDS ORDERED: Non-Formulary Item 1 EACH (Multivitamin [Multivitamins] 1 CAP) PO SCH (09:00)
[2019-05-29] MEDS ORDERED: Non-Formulary Item 1 EACH (Potassium Chloride [Potassium Chloride] 1 TAB) PO SCH (09:00)
[2019-05-29] MEDS ORDERED: Non-Formulary Item 1 EACH (Cyanocobalamin (Vitamin B-12) [Vitamin B12] 2,500 MCG) SL SCH (09:00)
[2019-05-29] MEDS ORDERED: Furosemide 40 MG TAB PO SCH (09:00)
[2019-05-29 09:14] LABS: Bacteria/HPF None Seen HPF (None Seen); Bilirubin Negative (Negative); Blood, Urine Negative (Negative); Clarity Clear (Clear); Glucose, Urine (Dipstick) Normal (Negative); Leukocyte Negative Leu/uL (Negative); Nitrite Negative (Negative); Protein, Urine (Dipstick) Negative (Neg-Trace); RBC/HPF None Seen HPF (0-3); Squamous Epithelial 0-3 HPF (0-3); Urobilinogen Normal mg/dL (Less than 2); WBC/HPF 0-3 HPF (0-3)
[2019-05-29] MEDS ORDERED: Promethazine HCl 25 MG/ML VIAL SLOW IVP PRN (09:44)
[2019-05-29] MEDS ORDERED: HYDROmorphone 2 MG/ML VIAL SLOW IVP PRN (09:44)
[2019-05-29] MEDS ORDERED: Ondansetron HCl/PF 4 MG/2 ML Vial IVP PRN (09:44)
[2019-05-29] MEDS ORDERED: PACU-Morphine 4MG/ML VIAL SLOW IVP PRN (09:44)
--- NOTE | 2019-05-29 10:41 | OP ---
DATE OF PROCEDURE: 05/29/2019 PREOPERATIVE DIAGNOSIS: Right knee osteoarthrosis. POSTOPERATIVE DIAGNOSIS: Right knee osteoarthrosis. PROCEDURE PERFORMED: Right total knee replacement using TEAM INTERVAL pinless navigation. MATTRESS WEAVER: Juvenal Jacobo PA-C BLOOD LOSS: Minimal. COMPLICATIONS: None. ANESTHESIA: She did have a general anesthetic. She also had a preoperative block to the right lower extremity. DISPOSITION: She was taken to recovery room in stable condition. There were no complications. IMPLANTS: Implants to the right knee: [employer] total knee system. The femur was size 6 cruciate retaining femur. We used a size 5 primary tibial baseplate, 5 x 9 mm CS X3 tibial bearing, and an asymmetric 35 x 10 X3 patella. INDICATIONS FOR PROCEDURE: This is a 74-year-old female, who comes in complaining of severe pain in the right leg. She has failed nonoperative treatment at this time and wished to have her knee replaced. PROCEDURE IN DETAIL: After all appropriate consent forms were explained and signed, the patient was taken back to the operating room and at this time was given general anesthetic. Once the level of anesthesia was appropriate, a well-padded tourniquet was placed on the right leg, and the leg was then prepped and draped in standard surgical fashion. The limb was exsanguinated and tourniquet taken up to 300 mmHg. Midline incision was made with a 10 blade down through the skin and subcutaneous tissue. Bovie electrocautery was used to coagulate any brisk venous bleeding. A new blade was used to make a medial parapatellar arthrotomy. Small subperiosteal release was performed medially and excess fat pad was removed. The knee was flexed up to gain access to the femur. The femur was navigated and distal femoral resection was made. Epicondylar access was used to align our sizing jig and this was pinned in place. We sized our femur to be a size 6. 4:1 cutting block was applied and pinned. Anterior and posterior chamfer cuts were then made. We navigated out our proximal tibia and made our proximal tibial resection. Spreaders were used to remove any posterior osteophytes off the back of the femur as well as remaining meniscal tissue. A long alignment yuriy was then used to achieve correct rotation of our tibial baseplate and a size 5 was chosen. This was pinned in place. We trialed the polyethylene and a 5 x 9 mm polyethylene gave us full extension and good stability throughout range of motion. Two towel clips and a saw were used to cut our patella. Three lug nuts were drilled and 35 x 10 patella was trialed which sat nicely in the trochlear groove. We then drilled our femur and punched our tibia. All components were removed. The knee was thoroughly irrigated and dried. Cement was mixed into the cement gun on the back table. Components were then placed. The knee was held out in full extension until the cement had dried. All excess bone cement was removed. Multiple #2 Vicryl stitches as well as a Quill were used to close our extensor mechanism. 0 Quill followed by a running Monoderm was then used to close the skin. Surgicel glue was then used on the skin. Once this had dried, soft tissue dressing was applied to the limb, tourniquet was let down, and the toes pinked up nicely. The patient was then awakened and taken to the recovery room in stable condition. All counts were correct at the end of the case. The patient did receive preoperative IV antibiotics. The patient was injected with Marcaine for postoperative pain relief. Job ID: [id number]
[2019-05-29] MEDS: Ketorolac Tromethamine 30 MG/ML VIAL IVP SCH ×2 (13:01→17:47)
[2019-05-29 13:29] VITALS: BMI 29.5
[2019-05-29] MEDS: Ferrous Gluconate 324 MG TAB PO SCH ×2 (14:02→21:14)
[2019-05-29] MEDS: Aspirin 81 mg Enteric Coated Tablet PO SCH ×2 (14:02→21:14)
[2019-05-29] MEDS: CeleCOXIB 100 MG CAP PO SCH (14:02)
[2019-05-29] MEDS: Carvedilol 3.125 MG TAB PO SCH ×2 (14:02→21:20)
[2019-05-29] MEDS: Sodium Chloride 0.9% 1,000 ML IV SCH ×2 (14:02→19:51)
[2019-05-29] MEDS: Senokot S 8.6-50 MG TAB PO SCH ×2 (14:03→21:14)
[2019-05-29] MEDS ORDERED: PROPOFOL 200 MG/20 ML VIAL ONE (14:26)
[2019-05-29] MEDS ORDERED: EPHEDRINE 25 MG/5 ML SYRINGE ONE (14:26)
[2019-05-29] MEDS ORDERED: Ropivacaine 0.2% HCl/PF (40 MG/20 ML VIAL) ONE (14:26)
[2019-05-29] MEDS ORDERED: Ketorolac Tromethamine 30 MG/ML VIAL ONE (14:26)
[2019-05-29] MEDS ORDERED: Lidocaine 1% PF 5 ML VIAL ONE (14:26)
[2019-05-29] MEDS ORDERED: Dexamethasone 20 MG/5 ML VIAL ONE (14:26)
[2019-05-29] MEDS ORDERED: Ondansetron PF 4 MG/2 ML Vial ONE (14:26)
[2019-05-29] MEDS ORDERED: Bupivacaine HCl 0.5%/Epinephrine 1:200,000/PF 30 ml Vial ONE (14:26)
[2019-05-29] MEDS: CEFAZOLIN 2 GM in Premix Bag 1 BAG IVPB SCH ×2 (15:00→21:09)
[2019-05-29] MEDS ORDERED: Vancomycin 1.5 GRAM/300 ML BAG 1.5 GM in Premix Bag 1 BAG IVPB SCH (21:00)
[2019-05-29] MEDS ORDERED: ALPRAZolam 0.25 MG TAB PO SCH (21:00)
[2019-05-29] MEDS: ALPRAZolam 0.25 MG TAB PO SCH (21:14)
--- NOTE | 2019-05-29 22:25 | PDOC.HOSPP ---
- Subjective Encounter Date: 05/29/19 Encounter Time: 16:00 Subjective: Patient seen and examined for med mngt. No fever/chills. Pain controlled. No new complaints. - Objective Vital Signs & Weight: Vital Signs (12 hours) Temp Pulse Resp BP Pulse Ox 05/29/19 19:42 97.5 F L 81 16 139/84 97 05/29/19 15:50 97.5 F L 79 18 156/91 H 96 05/29/19 11:50 97.4 F L 72 16 164/98 H 97 Weight Weight 205 lb 8 oz I&O: 05/28/19 05/29/19 05/30/19 06:59 06:59 06:59 Output Total 1999 Balance -1999 Additional Labs: Laboratory Tests 11/22/17 05/18/19 05/18/19 10:40 10:39 10:39 Hgb 12.3 Hct 38.8 Sodium 140 Potassium 4.3 Creatinine 0.81 Hemoglobin A1c 5.4 EKG Reviewed by me: Yes (SR) Hospitalist ROS - Review of Systems Respiratory: denies: cough, dry, shortness of breath, hemoptysis, SOB with excertion, pleuritic pain, sputum, wheezing, other Cardiovascular: denies: chest pain, palpitations, orthopnea, paroxysmal noc. dyspnea, edema, light headedness, other Gastrointestinal: denies: nausea, vomiting, abdominal pain, diarrhea, constipation, melena, hematochezia, other - Medication Medications: Active Medications Generic Name Dose Route Start Last Admin Trade Name Freq PRN Reason Stop Dose Admin Alprazolam 0.25 mg 05/29/19 21:00 05/29/19 21:14 Xanax PO 0.25 mg HS GAVIOTA Administration Aspirin 81 mg 05/29/19 09:00 05/29/19 21:14 Ecotrin PO 81 mg BID GAVIOTA Administration Carvedilol 3.125 mg 05/29/19 09:00 05/29/19 21:20 Coreg PO 3.125 mg BID GAVIOTA Administration Celecoxib 200 mg 05/29/19 09:00 05/29/19 14:02 Celebrex PO Not Given DAILY [facility] Ferrous Gluconate 324 mg 05/29/19 09:00 05/29/19 21:14 Fergon PO Not Given BID [facility] Cefazolin Sodium/Dextrose 2 gm 50 mls @ 100 mls/hr 05/29/19 14:00 05/29/19 21 :09 / Device IVPB 05/29/19 22:29 50 mls Q8HR GAVIOTA Administration Sodium Chloride 1,000 mls @ 100 mls/hr 05/29/19 08:30 05/29/19 19:51 Normal Saline 0.9% IV Not Given .Q10H G[facility]IOTA Vancomycin HCl 1.5 gm/ Device 300 mls @ 200 mls/hr 05/29/19 21:00 05/29/19 21 :15 IVPB 05/29/19 23:00 300 mls 2100 GAVITOA Administration Ketorolac Tromethamine 15 mg 05/29/19 12:00 05/29/19 17:47 Toradol IVP 05/31/19 06:01 15 mg Q6HR GAVIOTA Administration Pantoprazole Sodium 40 mg 05/29/19 09:00 05/29/19 14:02 Protonix PO Not Given DAILY [facility] Senna/Docusate Sodium 2 tab 05/29/19 09:00 05/29/19 21:14 Senokot S PO 2 tab BID G[facility]IOTA Administration - Exam General Appearance: NAD Neck: supple, no JVD Heart: RRR, no gallops Respiratory: no wheezes, no ronchi Gastrointestinal: non-tender, non-distended, normal bowel sounds Extremities: no cyanosis Hosp A/P - Plan DVT proph w/SCDs HTN CAD Par Afib GERD Anxiety h/o Breast CA CKD 2 PLAN: Cont Coreg Cont Lasix Cont ASA PT/OT DVT prophylaxis Full code. DPOA - self/family
[2019-05-30] MEDS: Ketorolac Tromethamine 30 MG/ML VIAL IVP SCH ×4 (00:14→18:13)
[2019-05-30 05:48] LABS: Hemoglobin 9.3 g/dL (12.0-16.0); Mean Corpuscular HGB CONC 32.9 g/dL (32.0-36.0); Mean Corpuscular Hemoglobin 31.3 pg (27.0-31.0); Mean Corpuscular Volume 95.3 fL (78.0-98.0); Mean Platelet Volume 7.4 fL (7.4-10.4); Platelet Count 190 thou/uL (130-400); RBC Distribution Width 12.9 % (11.5-14.5); Red Blood Cell (RBC) Count 2.96 mill/uL (4.20-5.40); White Blood Cell (WBC) Count 7.7 thou/uL (4.8-10.8)
[2019-05-30] MEDS: Sodium Chloride 0.9% 1,000 ML IV SCH ×2 (06:26→16:26)
[2019-05-30] MEDS: Ferrous Gluconate 324 MG TAB PO SCH ×2 (08:20→20:39)
[2019-05-30] MEDS: CeleCOXIB 100 MG CAP PO SCH ×2 (08:20→08:28)
[2019-05-30] MEDS: Aspirin 81 mg Enteric Coated Tablet PO SCH ×2 (08:21→20:38)
[2019-05-30] MEDS: Cyanocobalamin (Vitamin B-12) 1,000 MCG TAB PO SCH (08:21)
[2019-05-30] MEDS: Potassium Chloride 10 MEQ TAB PO SCH (08:22)
[2019-05-30] MEDS: Furosemide 40 MG TAB PO SCH (08:22)
[2019-05-30] MEDS: Senokot S 8.6-50 MG TAB PO SCH ×2 (08:22→20:39)
[2019-05-30] MEDS: Carvedilol 3.125 MG TAB PO SCH ×2 (08:23→20:39)
[2019-05-30] MEDS: Multivit, Therapeutic 1 TAB PO SCH (08:23)
--- NOTE | 2019-05-30 09:16 | PDOC.HOSPP ---
- Subjective Encounter Date: 05/30/19 Encounter Time: 09:16 Subjective: Patient seen and examined for medical rodríguez. No new complaints. No overnight events. She is in a pleasant mood. Will have catheter moved today and nerve block is out. Has been walking and moving feet. - Objective Vital Signs & Weight: Vital Signs (12 hours) Temp Pulse Resp BP Pulse Ox 05/30/19 07:40 97.7 F 78 16 122/78 100 05/30/19 04:11 97.8 F 80 16 143/81 H 96 05/29/19 23:40 98.0 F 78 16 111/68 97 Weight Weight 205 lb 8 oz I&O: 05/29/19 05/30/19 05/31/19 06:59 06:59 06:59 Intake Total 700 Output Total 2700 Balance -1999 Result Diagrams: 05/30/19 04:55 05/30/19 21:41 Hospitalist ROS - Review of Systems Constitutional: denies: fever, chills, sweats, weakness Gastrointestinal: denies: nausea, vomiting, abdominal pain - Medication Medications: Active Medications Generic Name Dose Route Start Last Admin Trade Name Freq PRN Reason Stop Dose Admin Alprazolam 0.25 mg 05/29/19 21:00 05/29/19 21:14 Xanax PO 0.25 mg HS GAVIOTA Administration Aspirin 81 mg 05/29/19 09:00 05/30/19 08:21 Ecotrin PO 81 mg BID G[facility] Administration Carvedilol 3.125 mg 05/29/19 09:00 05/30/19 08:23 Coreg PO 3.125 mg BID G[facility] Administration Celecoxib 200 mg 05/29/19 09:00 05/30/19 08:28 Celebrex PO Not Given DAILY [facility] Cyanocobalamin 2,500 mcg 05/30/19 09:00 05/30/19 08:21 Vitamin B-12 PO 2,500 mcg DAILY [facility] Administration Ferrous Gluconate 324 mg 05/29/19 09:00 05/30/19 08:20 Fergon PO 324 mg BID [facility] Administration Furosemide 40 mg 05/30/19 09:00 05/30/19 08:22 Lasix PO 40 mg DAILY [facility] Administration Sodium Chloride 1,000 mls @ 100 mls/hr 05/29/19 08:30 05/30/19 06:26 Normal Saline 0.9% IV Not Given .Q10H [facility] Ketorolac Tromethamine 15 mg 05/29/19 12:00 05/30/19 06:27 Toradol IVP 05/31/19 06:01 15 mg Q6HR G[facility]IOTA Administration Multivitamins 1 tab 05/30/19 09:00 05/30/19 08:23 Theragran PO 1 tab DAILY [facility] Administration Pantoprazole Sodium 40 mg 05/29/19 09:00 05/30/19 08:21 Protonix PO 40 mg DAILY [facility] Administration Potassium Chloride 10 meq 05/30/19 09:00 05/30/19 08:22 Klor-Con 10 PO 10 meq DAILY [facility] Administration Senna/Docusate Sodium 2 tab 05/29/19 09:00 05/30/19 08:22 Senokot S PO 2 tab BID G[facility] Administration - Exam Heart: RRR, no gallops Respiratory: CTAB, no wheezes, no rales, no ronchi Gastrointestinal: soft, non-tender, non-distended, normal bowel sounds Extremities: no cyanosis, no edema Psychiatric: normal affect, normal behavior, A&O x 3 Hosp A/P - Plan DVT proph w/SCDs HTN CAD Par Afib GERD Anxiety h/o Breast CA CKD 2 PLAN: Cont Coreg Cont Lasix Cont ASA PT/OT Will start with rivaroxaban when surgeon approves
[2019-05-30] MEDS: ALPRAZolam 0.25 MG TAB PO SCH (20:38)
[2019-05-30 22:11] LABS: Anion Gap 10 mmol/L (10-20); BUN (Urea Nitrogen) 22 mg/dL (9.8-20.1); Calc. Creatinine Clearance 77 mL/min (70-130); Calcium 8.5 mg/dL (7.8-10.44); Carbon Dioxide 26 mmol/L (23-31); Chloride 106 mmol/L (98-107); Estimated GFR-MDRD 59; Glucose 113 mg/dL (83-110); Magnesium 1.9 mg/dL (1.6-2.6); Potassium 3.7 mmol/L (3.5-5.1); Sodium 138 mmol/L (136-145)
[2019-05-31] MEDS: Ketorolac Tromethamine 30 MG/ML VIAL IVP SCH ×2 (00:15→05:02)
[2019-05-31] MEDS: Sodium Chloride 0.9% 1,000 ML IV SCH ×3 (03:40→20:15)
[2019-05-31 05:25] LABS: Hemoglobin 8.8 g/dL (12.0-16.0); Mean Corpuscular HGB CONC 34.2 g/dL (32.0-36.0); Mean Corpuscular Hemoglobin 32.3 pg (27.0-31.0); Mean Corpuscular Volume 94.4 fL (78.0-98.0); Mean Platelet Volume 7.5 fL (7.4-10.4); Platelet Count 172 thou/uL (130-400); Red Blood Cell (RBC) Count 2.73 mill/uL (4.20-5.40)
[2019-05-31] MEDS: Cyanocobalamin (Vitamin B-12) 1,000 MCG TAB PO SCH (08:08)
[2019-05-31] MEDS: Carvedilol 3.125 MG TAB PO SCH ×2 (08:08→20:17)
[2019-05-31] MEDS: Aspirin 81 mg Enteric Coated Tablet PO SCH ×2 (08:08→20:17)
[2019-05-31] MEDS: Ferrous Gluconate 324 MG TAB PO SCH ×2 (08:08→20:17)
[2019-05-31] MEDS: Multivit, Therapeutic 1 TAB PO SCH (08:08)
[2019-05-31] MEDS: CeleCOXIB 100 MG CAP PO SCH (08:08)
[2019-05-31] MEDS: Furosemide 40 MG TAB PO SCH (08:09)
[2019-05-31] MEDS: Senokot S 8.6-50 MG TAB PO SCH ×2 (08:09→21:24)
[2019-05-31] MEDS: Potassium Chloride 10 MEQ TAB PO SCH (08:09)
[2019-05-31] MEDS: traMADol HCl 50 MG TAB PO PRN ×2 (11:39→12:21)
--- NOTE | 2019-05-31 15:25 | PRG ---
DATE OF SERVICE: 05/31/2019 SUBJECTIVE: Mojgan is a 74-year-old female, postoperative day #2 from a right total knee arthroplasty. She is doing relatively well. She has no complaints. Pain is well controlled. We restart her Xarelto tonight. She has been on aspirin since surgery for concerns of her incision drainage. OBJECTIVE: VITAL SIGNS: Temperature 98.1, pulse rate 88, respiratory rate 16 and unlabored, O2 saturation 97% on room air, and blood pressure 132/81. GENERAL: She is alert and oriented to person, place, time, and situation. Responsive and appropriate with examiner. There is no malrotation or shortening. No strike through. No erythema at the incision. She is neurovascularly intact in the right lower extremity. LABORATORY DATA: Hemoglobin and hematocrit 8.8 and 25.8. IMPRESSION: 1. A 74-year-old female, postoperative day #2 right total knee arthroplasty. 2. Mild postoperative hemorrhagic anemia. 3. History of atrial fibrillation and myocardial infarction. PLAN: Restart Xarelto tonight at 6:00 p.m. and discharge tomorrow. Job ID: [id number]
[2019-05-31] MEDS ORDERED: Rivaroxaban 10 MG TAB PO SCH (17:00)
[2019-05-31] MEDS: ALPRAZolam 0.25 MG TAB PO SCH (20:17)
[2019-06-01 05:12] LABS: Hemoglobin 9.1 g/dL (12.0-16.0); Mean Corpuscular HGB CONC 32.3 g/dL (32.0-36.0); Mean Corpuscular Volume 95.9 fL (78.0-98.0); Mean Platelet Volume 7.2 fL (7.4-10.4); Platelet Count 182 thou/uL (130-400); RBC Distribution Width 13.1 % (11.5-14.5); Red Blood Cell (RBC) Count 2.93 mill/uL (4.20-5.40); White Blood Cell (WBC) Count 5.7 thou/uL (4.8-10.8)
[2019-06-01] MEDS: CeleCOXIB 100 MG CAP PO SCH (09:11)
[2019-06-01] MEDS: Ferrous Gluconate 324 MG TAB PO SCH (09:11)
[2019-06-01] MEDS: Multivit, Therapeutic 1 TAB PO SCH (09:11)
[2019-06-01] MEDS: Cyanocobalamin (Vitamin B-12) 1,000 MCG TAB PO SCH (09:12)
[2019-06-01] MEDS: Aspirin 81 mg Enteric Coated Tablet PO SCH (09:13)
[2019-06-01] MEDS: Furosemide 40 MG TAB PO SCH (09:13)
[2019-06-01] MEDS: Potassium Chloride 10 MEQ TAB PO SCH (09:13)
[2019-06-01] MEDS: Carvedilol 3.125 MG TAB PO SCH (09:14)
[2019-06-01] MEDS: Senokot S 8.6-50 MG TAB PO SCH (09:14)
[2019-06-01 12:00] VITALS: BP 157/85; TEMP 97.7
== END 2019-06-01 13:04 | disposition home or self-care (01) ==
LOC: SDC 07:08 → SJJU 07:10 → SDC 06-01 13:04
PROVIDERS: ATTEND Orthopaedic Surgery
PROC: 0SRC0JZ Replacement of Right Knee Joint with Synthetic Substitute, Open Approach (ICD-10-PCS; principal; 2019-05-29)
PROC: 8E0YXBZ Computer Assisted Procedure of Lower Extremity (ICD-10-PCS; 2019-05-29)
DX: M17.11 Unilateral primary osteoarthritis, right knee (principal); I12.9 Hypertensive chronic kidney disease with stage 1 through stage 4 chronic kidney disease, or unspecified chronic kidney disease; N18.2 Chronic kidney disease, stage 2 (mild); I25.10 Atherosclerotic heart disease of native coronary artery without angina pectoris; I48.0 Paroxysmal atrial fibrillation; K21.9 Gastro-esophageal reflux disease without esophagitis; F41.9 Anxiety disorder, unspecified; Z79.1 Long term (current) use of non-steroidal anti-inflammatories (NSAID); Z79.82 Long term (current) use of aspirin; Z79.899 Other long term (current) drug therapy; Z85.3 Personal history of malignant neoplasm of breast; Z87.891 Personal history of nicotine dependence; Z91.048 Other nonmedicinal substance allergy status
CPT/HCPCS: 20985; 27447; 80048; 81001; 83735; 85027; 87086; 97110; 97116 ×4; 97139 ×4; 97150 ×3; 97530 ×2; 98961; C1713; C1776; 36415; J0670; J0690; J1100; J1885; J2001; J2250; J2405; J2704; J2795; J3010; J3490; S0020

== ENCOUNTER 2021-10-16 12:49 | Outpatient (CLI) | payer MEDICARE ==
[2021-10-16 13:42] LABS: Hemoglobin 11.1 g/dL (12.0-15.5); Mean Corpuscular HGB CONC 31.2 g/dL (32.0-36.0); Mean Corpuscular Hemoglobin 28.5 pg (27.0-33.0); Mean Corpuscular Volume 91.3 fl (81.6-98.3); Mean Platelet Volume 9.3 fl (7.4-10.4); Platelet Count 297 10x3/uL (150-450); RBC Distribution Width 14.3 % (11.5-14.5); White Blood Cell (WBC) Count 6.4 10x3/uL (3.5-10.5)
[2021-10-16 14:00] LABS: INR-International Normal Ratio 1.6; PTT 32.8 sec (22.0-33.0); Prothrombin Time 16.6 sec (9.5-12.1)
[2021-10-16 14:20] LABS: Anion Gap 16 mmol/L (10-20); BUN (Urea Nitrogen) 20 mg/dL (9.8-20.1); Calc. Creatinine Clearance 0 mL/min (70-130); Calcium 9.5 mg/dL (7.8-10.44); Carbon Dioxide 28 mmol/L (23-31); Chloride 103 mmol/L (98-107); Estimated GFR 58; Glucose 108 mg/dL (83-110); Potassium 3.9 mmol/L (3.5-5.1); Sodium 143 mmol/L (136-145)
== END 2021-10-16 12:50 | disposition home or self-care (01) ==
LOC: LABBT 12:49
PROVIDERS: ATTEND Internal Medicine Cardiovascular Disease
DX: Z01.812 Encounter for preprocedural laboratory examination (principal); Z20.822 Contact with and (suspected) exposure to COVID-19
CPT/HCPCS: 80048; 85027; 85610; 85730; 87811

== ENCOUNTER 2021-10-17 09:43 | Day surgery (SDC) | payer MEDICARE ==
[2021-10-16 09:04] VITALS: BMI 31.5
[2021-10-17] MEDS ORDERED: Lidocaine 1% PF 5 ML VIAL ONE (12:03)
[2021-10-17] MEDS ORDERED: PROPOFOL 200 MG/20 ML VIAL ONE (12:03)
== END 2021-10-17 13:40 | disposition home or self-care (01) ==
LOC: SDC 09:43
PROVIDERS: ATTEND Internal Medicine Cardiovascular Disease
PROC: 5A2204Z Restoration of Cardiac Rhythm, Single (ICD-10-PCS; principal; 2021-10-17)
DX: I48.0 Paroxysmal atrial fibrillation (principal); I34.0 Nonrheumatic mitral (valve) insufficiency; I10 Essential (primary) hypertension; I25.2 Old myocardial infarction; Z85.3 Personal history of malignant neoplasm of breast; Z87.891 Personal history of nicotine dependence; Z79.01 Long term (current) use of anticoagulants; Z79.899 Other long term (current) drug therapy; Z91.048 Other nonmedicinal substance allergy status; Z98.84 Bariatric surgery status
CPT/HCPCS: 92960; J2704

== ENCOUNTER 2024-05-01 13:45 | Outpatient (CLI) | payer MEDICARE | END 2024-05-01 13:46 | disposition home or self-care (01) | LOC: CT 13:45 | PROVIDERS: ATTEND Family Medicine | DX: H53.131 Sudden visual loss, right eye (principal); G93.6 Cerebral edema; I63.89 Other cerebral infarction | CPT/HCPCS: 70450 ==

== ENCOUNTER 2024-05-18 15:07 | Outpatient (CLI) | payer MEDICARE ==
[2024-05-18 16:36] LABS: #Basophils 0.03 10x3/uL (0.0-0.2); %Basophils 0.6 % (0.0-1.0); %Eosinophils 2.7 % (0.0-10.0); %Monocytes 11.6 % (0.0-10.0); %Neutrophils 63.9 % (42.0-75.0); Hematocrit 36.1 % (36.0-47.0); Hemoglobin 11.3 g/dL (12.0-16.0); Mean Corpuscular HGB CONC 31.3 g/dL (32.0-36.0); Mean Corpuscular Hemoglobin 30.5 pg (27.0-31.0); Mean Corpuscular Volume 97.6 fL (78.0-98.0); Mean Platelet Volume 9.9 fL (7.4-10.4); Platelet Count 263 10x3/uL (130-400); RBC Distribution Width 13.6 % (11.5-14.5)
[2024-05-18 16:51] LABS: Anion Gap 13 mmol/L (10-20); BUN (Urea Nitrogen) 18 mg/dL (9.8-20.1); Calc. Creatinine Clearance 0 mL/min (70-130); Calcium 9.5 mg/dL (7.8-10.44); Carbon Dioxide 29 mmol/L (23-31); Chloride 103 mmol/L (98-107); Estimated GFR 52; Glucose 93 mg/dL (83-110); Potassium 3.8 mmol/L (3.5-5.1); Sodium 141 mmol/L (136-145)
== END 2024-05-18 15:08 | disposition home or self-care (01) ==
LOC: LABBT 15:07
PROVIDERS: ATTEND Internal Medicine Cardiovascular Disease
DX: Z01.818 Encounter for other preprocedural examination (principal); I48.91 Unspecified atrial fibrillation
CPT/HCPCS: 80048; 85025; 93005; 93010

== ENCOUNTER 2024-05-26 10:20 | Day surgery (SDC) | payer MEDICARE ==
[2024-05-18 15:36] VITALS: BMI 30.8
[2024-05-26] MEDS ORDERED: Lidocaine 1% PF 5 ML VIAL ONE (13:15)
[2024-05-26] MEDS ORDERED: PROPOFOL 200 MG/20 ML VIAL ONE (13:15)
== END 2024-05-26 15:08 | disposition home or self-care (01) ==
LOC: SDC 10:20
PROVIDERS: ATTEND Internal Medicine Cardiovascular Disease
PROC: B246ZZ4 Ultrasonography of Right and Left Heart, Transesophageal (ICD-10-PCS; principal; 2024-05-26)
DX: I48.0 Paroxysmal atrial fibrillation (principal); I63.9 Cerebral infarction, unspecified; I69.359 Hemiplegia and hemiparesis following cerebral infarction affecting unspecified side; Z85.3 Personal history of malignant neoplasm of breast; I10 Essential (primary) hypertension; I21.4 Non-ST elevation (NSTEMI) myocardial infarction; I08.0 Rheumatic disorders of both mitral and aortic valves; Z98.890 Other specified postprocedural states; Z98.51 Tubal ligation status; Z79.899 Other long term (current) drug therapy; Z87.891 Personal history of nicotine dependence; Z88.8 Allergy status to other drugs, medicaments and biological substances
CPT/HCPCS: 93312; J2704

== ENCOUNTER 2025-02-23 11:11 | Inpatient (IN) | payer MEDICARE ==
[2025-02-23 11:48] LABS: #Basophils 0.03 10x3/uL (0.0-0.2); #Eosinophils Less than 0.03 10x3/uL (0.0-0.7); #Monocytes 0.71 10x3/uL (0.11-0.59); #Neutrophils 5.12 10x3/uL (1.40-6.50); %Basophils 0.5 % (0.0-1.0); %Eosinophils 0.0 % (0.0-10.0); %Lymphocytes 10.5 % (21.0-51.0); %Monocytes 10.8 % (0.0-10.0); %Neutrophils 77.6 % (42.0-75.0); Hematocrit 22.5 % (36.0-47.0); Hemoglobin 6.2 g/dL (12.0-16.0); Mean Corpuscular Hemoglobin 19.6 pg (27.0-31.0); Mean Corpuscular Volume 71.0 fL (78.0-98.0); Platelet Count 299 10x3/uL (130-400); Red Blood Cell (RBC) Count 3.17 mill/uL (4.20-5.40); White Blood Cell (WBC) Count 6.59 10x3/uL (4.8-10.8)
[2025-02-23 12:02] LABS: ALT (SGPT) 49 U/L (Less than 34); AST (SGOT) 51 U/L (11-34); Albumin 3.9 g/dL (3.1-4.5); Alkaline Phosphatase 78 U/L (40-110); Anion Gap 15 mmol/L (10-20); BUN (Urea Nitrogen) 54 mg/dL (9.8-20.1); Bilirubin, Total 0.8 mg/dL (0.3-1.2); Calc. Creatinine Clearance 0 mL/min (70-130); Calcium 9.5 mg/dL (7.8-10.44); Carbon Dioxide 23 mmol/L (23-31); Chloride 102 mmol/L (98-107); Globulin 2.9 g/dL (2.4-3.5); Glucose 108 mg/dL (83-110); Potassium 3.6 mmol/L (3.5-5.1); Sodium 136 mmol/L (136-145)
[2025-02-23 12:13] LABS: Anisocytosis MODERATE=16-30 cells HPF (0-5); Macrocytosis SLIGHT = 6-15 cells HPF (0-5); Microcytosis MODERATE=15-30 cells HPF (0-5); Ovalocytes SLIGHT = 2-5 cells HPF (0-1); Platelet Adequacy Comment Platelets Normal; Poikilocytosis SLIGHT = 6-15 cells HPF (0-5); Polychromasia SLIGHT = 2-3 cells HPF (0-2); Schistocytes SLIGHT = 2-5 cells HPF (0-1); Target Cells SLIGHT = 2-5 cells HPF (0-1)
[2025-02-23 13:37] LABS: INR-International Normal Ratio 5.5; Prothrombin Time 50.7 sec (12.0-14.7)
[2025-02-23 13:38] LABS: PTT 45.1 sec (22.9-36.1)
[2025-02-23 13:49] LABS: Iron 11 ug/dL (50-170); Iron Binding Capacity, Total 413 mcg/dL (265-497)
[2025-02-23 14:10] LABS: Ferritin 13.97 ng/mL (10-291)
[2025-02-23] MEDS ORDERED: Acetaminophen 325 MG TAB PO PRN (14:41)
[2025-02-23] MEDS ORDERED: Melatonin 3 MG TAB PO PRN (14:41)
[2025-02-23] MEDS ORDERED: hydrALAZINE 20 MG/ML VIAL SLOW IVP PRN (15:09)
[2025-02-23 15:58] VITALS: BMI 34.2
[2025-02-23] MEDS: Pantoprazole 40 MG VIAL IVP SCH (16:22)
[2025-02-23] MEDS: Sodium Ferric Gluconate 250 MG in Sodium Chloride 0.9% 250 ML 250 ML IVPB SCH (16:22)
[2025-02-23 17:03] LABS: #Basophils 0.03 10x3/uL (0.0-0.2); #Eosinophils Less than 0.03 10x3/uL (0.0-0.7); #Monocytes 0.71 10x3/uL (0.11-0.59); #Neutrophils 3.67 10x3/uL (1.40-6.50); %Basophils 0.6 % (0.0-1.0); %Eosinophils 0.4 % (0.0-10.0); %Lymphocytes 16.7 % (21.0-51.0); %Monocytes 13.3 % (0.0-10.0); %Neutrophils 68.8 % (42.0-75.0); Hematocrit 22.7 % (36.0-47.0); Hemoglobin 6.5 g/dL (12.0-16.0); Mean Corpuscular Hemoglobin 20.9 pg (27.0-31.0); Mean Corpuscular Volume 73.0 fL (78.0-98.0); Platelet Count 265 10x3/uL (130-400); Red Blood Cell (RBC) Count 3.11 mill/uL (4.20-5.40); White Blood Cell (WBC) Count 5.33 10x3/uL (4.8-10.8)
[2025-02-23 17:25] LABS: Anisocytosis SLIGHT = 6-15 cells HPF (0-5); Burr Cells SLIGHT = 2-5 cells HPF (0-1); Macrocytosis SLIGHT = 6-15 cells HPF (0-5); Microcytosis SLIGHT = 6-15 cells HPF (0-5); Platelet Adequacy Comment Platelets Normal; Polychromasia SLIGHT = 2-3 cells HPF (0-2); Schistocytes SLIGHT = 2-5 cells HPF (0-1)
[2025-02-23] MEDS: Furosemide 20 MG (2 mL) VIAL SLOW IVP SCH (20:26)
[2025-02-23 21:49] LABS: Hematocrit 26.1 % (36.0-47.0); Hemoglobin 7.6 g/dL (12.0-16.0)
[2025-02-24 04:20] LABS: #Basophils 0.03 10x3/uL (0.0-0.2); #Eosinophils Less than 0.03 10x3/uL (0.0-0.7); #Monocytes 0.78 10x3/uL (0.11-0.59); #Neutrophils 5.00 10x3/uL (1.40-6.50); %Basophils 0.5 % (0.0-1.0); %Eosinophils 0.3 % (0.0-10.0); %Lymphocytes 10.0 % (21.0-51.0); %Monocytes 11.9 % (0.0-10.0); %Neutrophils 76.5 % (42.0-75.0); Hematocrit 24.9 % (36.0-47.0); Hemoglobin 7.2 g/dL (12.0-16.0); Mean Corpuscular Hemoglobin 21.4 pg (27.0-31.0); Mean Corpuscular Volume 74.1 fL (78.0-98.0); Platelet Count 249 10x3/uL (130-400); Red Blood Cell (RBC) Count 3.36 mill/uL (4.20-5.40); White Blood Cell (WBC) Count 6.53 10x3/uL (4.8-10.8)
[2025-02-24 04:34] LABS: ALT (SGPT) 50 U/L (Less than 34); AST (SGOT) 37 U/L (11-34); Albumin 3.4 g/dL (3.1-4.5); Alkaline Phosphatase 70 U/L (40-110); Anion Gap 16 mmol/L (10-20); BUN (Urea Nitrogen) 54 mg/dL (9.8-20.1); Bilirubin, Total 1.0 mg/dL (0.3-1.2); Calc. Creatinine Clearance 30 mL/min (70-130); Calcium 9.0 mg/dL (7.8-10.44); Carbon Dioxide 21 mmol/L (23-31); Chloride 106 mmol/L (98-107); Globulin 2.4 g/dL (2.4-3.5); Glucose 91 mg/dL (83-110); Magnesium 2.3 mg/dL (1.6-2.6); Potassium 3.4 mmol/L (3.5-5.1); Sodium 140 mmol/L (136-145)
[2025-02-24] MEDS: Pantoprazole 40 MG VIAL IVP SCH (08:49)
[2025-02-24] MEDS: Furosemide 40 MG (4 mL) VIAL SLOW IVP SCH (12:52)
[2025-02-25 06:49] LABS: INR-International Normal Ratio 2.0; Prothrombin Time 22.5 sec (12.0-14.7)
[2025-02-25 08:19] LABS: #Basophils 0.04 10x3/uL (0.0-0.2); #Eosinophils 0.15 10x3/uL (0.0-0.7); #Monocytes 0.82 10x3/uL (0.11-0.59); #Neutrophils 4.55 10x3/uL (1.40-6.50); %Basophils 0.6 % (0.0-1.0); %Eosinophils 2.3 % (0.0-10.0); %Lymphocytes 13.4 % (21.0-51.0); %Monocytes 12.7 % (0.0-10.0); %Neutrophils 70.4 % (42.0-75.0); Hematocrit 30.2 % (36.0-47.0); Hemoglobin 8.8 g/dL (12.0-16.0); Mean Corpuscular Hemoglobin 22.2 pg (27.0-31.0); Mean Corpuscular Volume 76.1 fL (78.0-98.0); Platelet Count 265 10x3/uL (130-400); Red Blood Cell (RBC) Count 3.97 mill/uL (4.20-5.40); White Blood Cell (WBC) Count 6.47 10x3/uL (4.8-10.8)
[2025-02-25] MEDS ORDERED: Magnesium 2 GM/50 ML(in water) 2 GM in Premix 1 BAG IVPB PRN (08:45)
[2025-02-25] MEDS ORDERED: Potassium Chloride 20 MEQ in Premix 1 BAG IVPB PRN (08:45)
[2025-02-25] MEDS ORDERED: PHOS-NAK 1 PKT PACK PO PRN (08:45)
[2025-02-25] MEDS ORDERED: Electrolyte Replacement Protocol 1 EACH FS SCH (08:45)
[2025-02-25 08:47] LABS: ALT (SGPT) 42 U/L (Less than 34); AST (SGOT) 32 U/L (11-34); Albumin 3.2 g/dL (3.1-4.5); Alkaline Phosphatase 74 U/L (40-110); Anion Gap 11 mmol/L (10-20); BUN (Urea Nitrogen) 36 mg/dL (9.8-20.1); Bilirubin, Total 1.0 mg/dL (0.3-1.2); Calc. Creatinine Clearance 47 mL/min (70-130); Calcium 9.2 mg/dL (7.8-10.44); Carbon Dioxide 26 mmol/L (23-31); Chloride 109 mmol/L (98-107); Globulin 2.6 g/dL (2.4-3.5); Glucose 91 mg/dL (83-110); Potassium 3.1 mmol/L (3.5-5.1); Sodium 143 mmol/L (136-145)
[2025-02-25] MEDS: Furosemide 40 MG (4 mL) VIAL SLOW IVP SCH ×2 (08:51→14:22)
[2025-02-25 12:45] LABS: Potassium 3.6 mmol/L (3.5-5.1)
[2025-02-25] MEDS: GoLYTELY 4,000 ml Bottle PO SCH (15:56)
[2025-02-26 05:37] LABS: Bacteria/HPF 4+ HPF (None Seen); Glucose, Urine (Dipstick) Normal (Negative); Leukocyte 500 Leu/uL (Negative); Protein, Urine (Dipstick) 30 mg/dL (Neg-Trace); RBC/HPF 21-50 HPF (0-3); Specific Gravity, Urine 1.011 (1.002-1.036); WBC/HPF Greater than 50 HPF (0-3)
[2025-02-26 05:40] LABS: #Basophils 0.03 10x3/uL (0.0-0.2); #Eosinophils 0.15 10x3/uL (0.0-0.7); #Monocytes 0.84 10x3/uL (0.11-0.59); #Neutrophils 4.53 10x3/uL (1.40-6.50); %Basophils 0.5 % (0.0-1.0); %Eosinophils 2.3 % (0.0-10.0); %Lymphocytes 15.1 % (21.0-51.0); %Monocytes 12.8 % (0.0-10.0); %Neutrophils 69.0 % (42.0-75.0); Hematocrit 31.0 % (36.0-47.0); Hemoglobin 9.4 g/dL (12.0-16.0); Mean Corpuscular Hemoglobin 22.7 pg (27.0-31.0); Mean Corpuscular Volume 74.9 fL (78.0-98.0); Platelet Count 276 10x3/uL (130-400); Red Blood Cell (RBC) Count 4.14 mill/uL (4.20-5.40); White Blood Cell (WBC) Count 6.56 10x3/uL (4.8-10.8)
[2025-02-26 05:59] LABS: ALT (SGPT) 33 U/L (Less than 34); AST (SGOT) 21 U/L (11-34); Albumin 3.1 g/dL (3.1-4.5); Alkaline Phosphatase 74 U/L (40-110); Anion Gap 15 mmol/L (10-20); BUN (Urea Nitrogen) 22 mg/dL (9.8-20.1); Bilirubin, Total 0.8 mg/dL (0.3-1.2); Calc. Creatinine Clearance 62 mL/min (70-130); Calcium 9.0 mg/dL (7.8-10.44); Carbon Dioxide 27 mmol/L (23-31); Chloride 105 mmol/L (98-107); Globulin 2.5 g/dL (2.4-3.5); Glucose 96 mg/dL (83-110); Potassium 2.9 mmol/L (3.5-5.1); Sodium 144 mmol/L (136-145)
[2025-02-26] MEDS: Potassium Chloride 20 MEQ in Premix 1 BAG IVPB SCH (08:43)
[2025-02-26] MEDS ORDERED: Potassium Chloride 20 MEQ in Premix 1 BAG IVPB PRN (08:44)
[2025-02-26] MEDS ORDERED: Furosemide 40 MG (4 mL) VIAL SLOW IVP SCH (09:00)
[2025-02-26] MEDS ORDERED: PROPOFOL 200 MG/20 ML VIAL ONE (09:58)
[2025-02-26] MEDS ORDERED: Lidocaine 1% PF 5 ML VIAL ONE (10:27)
[2025-02-26] MEDS: Furosemide 40 MG TAB PO SCH (12:04)
[2025-02-26 12:18] LABS: Anion Gap 14 mmol/L (10-20); BUN (Urea Nitrogen) 20 mg/dL (9.8-20.1); Calc. Creatinine Clearance 70 mL/min (70-130); Calcium 9.4 mg/dL (7.8-10.44); Carbon Dioxide 29 mmol/L (23-31); Chloride 104 mmol/L (98-107); Glucose 95 mg/dL (83-110); Potassium 3.2 mmol/L (3.5-5.1); Sodium 144 mmol/L (136-145)
[2025-02-27 04:29] LABS: #Basophils 0.03 10x3/uL (0.0-0.2); #Eosinophils 0.18 10x3/uL (0.0-0.7); #Monocytes 0.91 10x3/uL (0.11-0.59); #Neutrophils 4.78 10x3/uL (1.40-6.50); %Basophils 0.4 % (0.0-1.0); %Eosinophils 2.6 % (0.0-10.0); %Lymphocytes 13.6 % (21.0-51.0); %Monocytes 13.3 % (0.0-10.0); %Neutrophils 69.8 % (42.0-75.0); Hematocrit 30.6 % (36.0-47.0); Hemoglobin 8.9 g/dL (12.0-16.0); Mean Corpuscular Hemoglobin 22.5 pg (27.0-31.0); Mean Corpuscular Volume 77.5 fL (78.0-98.0); Platelet Count 264 10x3/uL (130-400); Red Blood Cell (RBC) Count 3.95 mill/uL (4.20-5.40); White Blood Cell (WBC) Count 6.85 10x3/uL (4.8-10.8)
[2025-02-27 04:51] LABS: ALT (SGPT) 26 U/L (Less than 34); AST (SGOT) 22 U/L (11-34); Albumin 3.1 g/dL (3.1-4.5); Alkaline Phosphatase 72 U/L (40-110); Anion Gap 12 mmol/L (10-20); BUN (Urea Nitrogen) 16 mg/dL (9.8-20.1); Bilirubin, Total 0.8 mg/dL (0.3-1.2); Calc. Creatinine Clearance 60 mL/min (70-130); Calcium 9.4 mg/dL (7.8-10.44); Carbon Dioxide 29 mmol/L (23-31); Chloride 103 mmol/L (98-107); Globulin 2.4 g/dL (2.4-3.5); Glucose 101 mg/dL (83-110); Potassium 3.8 mmol/L (3.5-5.1); Sodium 140 mmol/L (136-145)
[2025-02-27] MEDS: Metoprolol Succinate XL 50 MG ER.TAB PO SCH (16:52)
[2025-02-27] MEDS: Apixaban 5 MG TAB PO SCH (22:40)
[2025-02-28 04:41] LABS: #Basophils 0.04 10x3/uL (0.0-0.2); #Eosinophils 0.15 10x3/uL (0.0-0.7); #Monocytes 0.90 10x3/uL (0.11-0.59); #Neutrophils 4.61 10x3/uL (1.40-6.50); %Basophils 0.6 % (0.0-1.0); %Eosinophils 2.3 % (0.0-10.0); %Lymphocytes 13.9 % (21.0-51.0); %Monocytes 13.6 % (0.0-10.0); %Neutrophils 69.3 % (42.0-75.0); Hematocrit 30.1 % (36.0-47.0); Hemoglobin 8.6 g/dL (12.0-16.0); Mean Corpuscular Hemoglobin 22.7 pg (27.0-31.0); Mean Corpuscular Volume 79.4 fL (78.0-98.0); Platelet Count 233 10x3/uL (130-400); Red Blood Cell (RBC) Count 3.79 mill/uL (4.20-5.40); White Blood Cell (WBC) Count 6.64 10x3/uL (4.8-10.8)
[2025-02-28 04:47] LABS: ALT (SGPT) 19 U/L (Less than 34); AST (SGOT) 21 U/L (11-34); Albumin 2.9 g/dL (3.1-4.5); Alkaline Phosphatase 67 U/L (40-110); Anion Gap 12 mmol/L (10-20); BUN (Urea Nitrogen) 15 mg/dL (9.8-20.1); Bilirubin, Total 0.6 mg/dL (0.3-1.2); Calc. Creatinine Clearance 61 mL/min (70-130); Calcium 9.4 mg/dL (7.8-10.44); Carbon Dioxide 28 mmol/L (23-31); Chloride 104 mmol/L (98-107); Globulin 2.6 g/dL (2.4-3.5); Glucose 100 mg/dL (83-110); Potassium 3.6 mmol/L (3.5-5.1); Sodium 140 mmol/L (136-145)
[2025-02-28] MEDS: Pantoprazole 40 MG DR.TAB PO SCH (09:03)
[2025-02-28] MEDS: Metoprolol Succinate XL 50 MG ER.TAB PO SCH (09:04)
[2025-02-28 11:24] VITALS: BP 151/75; TEMP 98.1
== END 2025-02-28 13:23 | disposition home or self-care (01) | DRG 811 ==
LOC: ERS 11:11 → 2NO 15:22 → OBSVTOIN 02-24 11:37
PROVIDERS: ADMIT Internal Medicine; ATTEND Internal Medicine
PROC: 30233N1 Transfusion of Nonautologous Red Blood Cells into Peripheral Vein, Percutaneous Approach (ICD-10-PCS; 2025-02-23)
PROC: 0DJ08ZZ Inspection of Upper Intestinal Tract, Via Natural or Artificial Opening Endoscopic (ICD-10-PCS; principal; 2025-02-26)
PROC: 0DJD8ZZ Inspection of Lower Intestinal Tract, Via Natural or Artificial Opening Endoscopic (ICD-10-PCS; 2025-02-26)
DX: D50.9 Iron deficiency anemia, unspecified (principal); I50.33 Acute on chronic diastolic (congestive) heart failure; N17.9 Acute kidney failure, unspecified; I48.0 Paroxysmal atrial fibrillation; I25.10 Atherosclerotic heart disease of native coronary artery without angina pectoris; R00.1 Bradycardia, unspecified; R74.01 Elevation of levels of liver transaminase levels; E87.6 Hypokalemia; I11.0 Hypertensive heart disease with heart failure; Z79.01 Long term (current) use of anticoagulants; Z91.048 Other nonmedicinal substance allergy status; Z98.84 Bariatric surgery status; Z98.51 Tubal ligation status; Z90.49 Acquired absence of other specified parts of digestive tract; Z98.890 Other specified postprocedural states; Z86.73 Personal history of transient ischemic attack (TIA), and cerebral infarction without residual deficits; Z85.3 Personal history of malignant neoplasm of breast; I25.2 Old myocardial infarction; K64.8 Other hemorrhoids; K31.7 Polyp of stomach and duodenum; K57.30 Diverticulosis of large intestine without perforation or abscess without bleeding; I08.0 Rheumatic disorders of both mitral and aortic valves; Z79.899 Other long term (current) drug therapy; R79.1 Abnormal coagulation profile; Z92.3 Personal history of irradiation; Z92.21 Personal history of antineoplastic chemotherapy; E78.5 Hyperlipidemia, unspecified
CPT/HCPCS: 36415; 36430; 71046; 71260; 74177; 80048; 80053; 80076; 81001; 82728; 83540; 83550; 83615; 83735; 83880; 84443; 84484; 85025; 85610; 85730; 86850; 86900; 86901; 93005; 93010; 93306; 96374; 96375; 96376; G0378; J1940; J2470; J2704; J2916; J3480; J7030; J7050; P9016